=== PATIENT | male | born 1970 | race Caucasian/White ===

== ENCOUNTER 2017-12-11 19:51 | Emergency (ER) | payer OTHER, SELFPAY ==
[2017-12-11 19:52] VITALS: BP 118/70; PULSE 70; RESP 14; TEMP 36.1; O2SAT 100; BMI 46.0
--- NOTE | 2017-12-11 21:00 | RAD_ITS ---
STUDY: X-RAY - LEFT KNEE REASON FOR EXAM: Male, 47 years old. Pain. TECHNIQUE: 4 view(s) of the knee. COMPARISON: None. FINDINGS: Normal visualized distal femur. Normal visualized proximal tibia and fibula. Normal proximal tibiofibular articulation. There is no demonstrated fracture. Normal medial femorotibial compartment. Normal lateral femorotibial compartment. Possible mild subluxation of the patella laterally, with osteophytes along the lateral edge of the patella. Mild patellofemoral degenerative changes. No evidence for effusions. The soft tissue structures are unremarkable. RAD/Knee 4 or More Views IMPRESSION: No acute fracture or dislocation. Possible mild subluxation of the patella laterally, with osteophytes along the lateral edge of the patella. Mild patellofemoral degenerative changes. Electronically Signed: Hernando Mascorro MD at 21:29 EDT , Service support ,
--- NOTE | 2017-12-11 21:45 | ED.VISSUMM ---
- ER Visit Summary Date of Service: 12/11/17 Chief Complaint: Knee pain History of Present Illness: The patient is a 47 M who presents with left knee pain. It is been present for about a week. It has been steadily worsening. It is aching in nature. It was worse with walking up steps. It is worse with movement or ambulation. He has been trying Aleve without relief. There is no history of fall or injury. He has had a prior right knee arthroscopy. No history of gout. Physical Examination: Afebrile vitals are unremarkable Moist mucous membranes Heart regular rate and rhythm Lungs are clear Active full range of motion of the left knee I do not appreciate effusion he has no calf tenderness no leg erythema or swelling and he has brisk capillary refill Test Results: Knee x-ray shows mild patellofemoral changes no fracture. Emergency Department Course and Treatment: Patient was advised on supportive care including ice elevation compression and anti-inflammatory use. He was given a home pack of [place] and advised to follow-up with his primary care physician. He was advised if his symptoms continue may need further outpatient workup or orthopedic referral. Treatment Plan: [] Disposition: Discharge Impression: Left knee pain This note was generated with hopscout dictation software. It may contain incorrect words, spelling, and punctuation that were not noted in review of the chart prior to signing ED Disposition - Plan for ED Patient: Chief Complaint: Lower Extremity Injury Referrals: Anna Lange DO [Primary Care Provider] -
--- NOTE | 2017-12-11 21:46 | ED.DEP ---
ED Disposition - Plan for ED Patient: Chief Complaint: Lower Extremity Injury Instructions: ED Knee Pain [facility] Referrals: Anna Lange DO [Primary Care Provider] -
[2017-12-11] MEDS: HYDROcodone Bitartrate/Apap 5/325 Tablet PO (22:01)
[2017-12-11 22:04] VITALS: BP 120/78; PULSE 79; RESP 16; O2SAT 96
== END 2017-12-11 22:04 | disposition home or self-care (01) ==
PROVIDERS: Emergency Provider Emergency Medicine; Family Provider Family Medicine; PCP Family Medicine
DX: M25.562 Pain in left knee (principal); I10 Essential (primary) hypertension; Z72.0 Tobacco use; Z79.82 Long term (current) use of aspirin; Z79.899 Other long term (current) drug therapy
CPT/HCPCS: 73564; 99282

== ENCOUNTER → 2017-12-22 10:35 | Outpatient (CLI) | payer OTHER, SELFPAY ==
--- NOTE | 2017-12-22 10:42 | MRI_ITS ---
STUDY: MRI LEFT KNEE REASON FOR EXAM: Popping and soreness and left knee since 12/11/2017. TECHNIQUE: Standardized fat and water weighted pulse sequences were obtained in all 3 orthogonal planes. COMPARISON: Radiographs 12/11/2017. FINDINGS: There is a complex tear of the posterior horn/posterior body of the medial meniscus (proton-density sagittal images 9-12; proton density coronal images 12-14). Normal hyaline cartilage of the medial femorotibial compartment. There is slight subchondral bone edema of the medial tibial plateau. There is mild periligamentous inflammation of the medial collateral ligament (T2 coronal image 15). Normal distal semimembranosus, gracilis and semitendinosus tendons. Normal lateral meniscus. Normal hyaline cartilage of the lateral femorotibial compartment. Normal lateral femoral condyle and tibial plateau. Normal proximal tibiofibular articulation. Normal lateral collateral (fibular) ligament. Normal popliteus tendon. Normal biceps femoris tendon. Normal anterior cruciate ligament (ACL). Normal posterior cruciate ligament (PCL). There is mild lateral tilt and mild lateral subluxation of the patella (T2 axial image 10). Normal hyaline cartilage of the patellofemoral compartment. Normal medial and lateral patellar retinaculum. Normal visualized quadriceps tendon. Normal patellar tendon. Normal Hoffa's fat pad. There is a small joint effusion. There is mild edema in the anterior subcutis adipose space. The otherwise visualized osseous structures are unremarkable. MRI/Lower Ext Joint Only (Routine) IMPRESSION: Medial meniscal tear. Mild periligamentous inflammation of the medial collateral ligament. Mild lateral tilt and mild lateral subluxation of the patella. Small joint effusion. Electronically Signed: Koby Reynolds MD at 12:43 EDT Tel , Service support ,
== END ==
PROVIDERS: Family Provider Family Medicine; PCP Family Medicine; Visit Provider Family Medicine
DX: M25.562 Pain in left knee (principal)
CPT/HCPCS: 73721

== ENCOUNTER 2018-01-03 13:14 | Day surgery (SDC) | payer OTHER, SELFPAY ==
--- NOTE | 2017-12-29 16:11 | EKG12_ITS ---
Test Reason : PRE OP Blood Pressure : / mmHG Vent. Rate : 064 BPM Atrial Rate : 064 BPM P-R Int : 142 ms QRS Dur : 086 ms QT Int : 396 ms P-R-T Axes : -49 012 018 degrees QTc Int : 408 ms Sinus vs. ectopic atrial bradycardia Low voltage QRS Abnormal ECG Confirmed by MERT WONG, DAYANARA ([id number]), news videotape editor XENIA ANTONIO ([id number]) on 12/30/2017 2:57:13 PM Referred By: Kennedy Garrett Confirmed By:DAYANARA PAINTING MD
[2017-12-29 17:26] LABS: Hematocrit 48.6 % (40-54); Hemoglobin 16.2 g/dl (13.0-16.5); Mean Corp Hgb Conc 33.3 g/gl (32-36); Mean Corpuscular Hgb 32.3 pg (27.0-32.0); Mean Corpuscular Volume 96.8 fL (80-94); Mean Platelet Vol. 10.7 fl (6.2-12.0); Platelet Count 184 K/mm3 (150-450); RBC Distribution Width CV 12.8 % (11.6-14.6); RBC Distribution Width SD 44.9 fl (35.1-43.9); Red Blood Count 5.02 M/mm3 (4.6-6.2); White Blood Count 9.8 K/mm3 (4.4-11.0)
[2017-12-29 17:27] LABS: Scan Indicated on CBC? Y/N NO
[2017-12-29 17:45] LABS: Anion Gap 9 (5-15); BUN 21 mg/dL (7-18); BUN/Creat Ratio 23.9 RATIO (10-20); Calcium,Total 8.9 mg/dL (8.5-10.1); Chloride 101 mmol/L (98-107); Creatinine, Serum 0.88 mg/dL (0.70-1.30); EST Glomerular Filtration Rate 99 mL/min (>60); Est Glom Filt Rate - Afr Amer 120 mL/min (>60); Glucose 87 mg/dL (74-106); Sodium Level 137 mmol/L (136-145)
[2018-01-03 13:33] VITALS: BP 144/92; PULSE 86; RESP 16; TEMP 36.9; O2SAT 100; BMI 49.6
[2018-01-03] MEDS: Bupivacaine Mpf 0.5% 30 ML VIAL (16:30)
[2018-01-03 17:13] VITALS: BP 144/92; BP 160/97; PULSE 87; RESP 18; TEMP 36.5; O2SAT 94
[2018-01-03 17:30] VITALS: BP 142/69; BP 144/92; PULSE 70; RESP 18; O2SAT 99
[2018-01-03 17:45] VITALS: BP 128/83; BP 144/92; PULSE 67; RESP 18; O2SAT 98
[2018-01-03 18:00] VITALS: BP 138/82; BP 144/92; PULSE 73; RESP 18; TEMP 36.7; O2SAT 98
[2018-01-03 18:35] VITALS: BP 144/92
== END 2018-01-03 19:00 | disposition home or self-care (01) ==
LOC: SDC 13:14 → AC 13:15
PROVIDERS: Family Provider Family Medicine; PCP Family Medicine; Visit Provider Orthopaedic Surgery
PROC: (CPT 29870; principal; 2018-01-03 14:45)
DX: S83.242A Other tear of medial meniscus, current injury, left knee, initial encounter (principal); I10 Essential (primary) hypertension; G47.33 Obstructive sleep apnea (adult) (pediatric); F17.210 Nicotine dependence, cigarettes, uncomplicated; E66.01 Morbid (severe) obesity due to excess calories; Z68.43 Body mass index [BMI] 50.0-59.9, adult; Z87.442 Personal history of urinary calculi; Z86.72 Personal history of thrombophlebitis; Z86.718 Personal history of other venous thrombosis and embolism; Z86.711 Personal history of pulmonary embolism; Z86.2 Personal history of diseases of the blood and blood-forming organs and certain disorders involving the immune mechanism; Z79.82 Long term (current) use of aspirin; Z79.891 Long term (current) use of opiate analgesic; Z79.899 Other long term (current) drug therapy; X58.XXXA Exposure to other specified factors, initial encounter; Y93.01 Activity, walking, marching and hiking; Y92.008 Other place in unspecified non-institutional (private) residence as the place of occurrence of the external cause; Y99.8 Other external cause status
CPT/HCPCS: 29881; 36415; 80048; 85027; 93005; J7120

== ENCOUNTER → 2018-05-22 11:06 | Outpatient (CLI) | payer OTHER, SELFPAY ==
--- NOTE | 2018-05-22 11:08 | RAD_ITS ---
STUDY: X-RAY - LEFT FOOT CLINICAL: Male, 47 years old. Pain and unable to bear weight. TECHNIQUE: 3 view(s) of the foot. COMPARISON: None. FINDINGS: There is an enthesophyte involving the posterior superior calcaneus at the site of insertion of the Achilles tendon. Normal visualized subtalar, talonavicular, calcaneocuboid, tarsal and tarsometatarsal articulations. Nondisplaced transverse fracture at the base of the fifth metatarsal. Normal metatarsophalangeal joint of the great toe. Normal tibial and fibular sesamoid bones. Normal interphalangeal joint of the great toe. Normal phalanges of the great toe. Normal second through fifth metatarsophalangeal joints. Normal interphalangeal joints and phalanges of the lesser toes. Soft tissue swelling. RAD/Foot min 3 Views IMPRESSION: Nondisplaced transverse fracture at the base of the fifth metatarsal with overlying soft tissue swelling. Electronically Signed: Chaka Donovan MD at 11:36 EDT Tel [phone], Service support ,
== END ==
PROVIDERS: Family Provider Family Medicine; PCP Family Medicine; Visit Provider Physician Assistant Surgical
DX: S90.32XA Contusion of left foot, initial encounter (principal)
CPT/HCPCS: 73630

== ENCOUNTER → 2018-05-26 11:41 | Outpatient (CLI) | payer OTHER, SELFPAY ==
[2018-05-26 14:17] LABS: Vitamin D,25 Hydroxy 24.9 ng/mL (29.95-100.01)
== END ==
PROVIDERS: Family Provider Family Medicine; PCP Family Medicine; Referring Provider Podiatrist; Visit Provider Podiatrist
DX: S92.355A Nondisplaced fracture of fifth metatarsal bone, left foot, initial encounter for closed fracture (principal); E55.9 Vitamin D deficiency, unspecified
CPT/HCPCS: 36415; 82306

== ENCOUNTER → 2018-12-05 | Outpatient (CLI) | payer OTHER, SELFPAY ==
[2018-10-23 13:54] VITALS: BMI 51.5
[2018-12-05 14:13] LABS: Hematocrit 50.5 % (40-54); Hemoglobin 17.4 g/dl (13.0-16.5); Mean Corp Hgb Conc 34.5 g/gl (32-36); Mean Corpuscular Hgb 32.6 pg (27.0-32.0); Mean Corpuscular Volume 94.6 fL (80-94); Mean Platelet Vol. 10.4 fl (6.2-12.0); Platelet Count 173 K/mm3 (150-450); RBC Distribution Width CV 12.5 % (11.6-14.6); RBC Distribution Width SD 42.4 fl (35.1-43.9); Red Blood Count 5.34 M/mm3 (4.6-6.2); White Blood Count 7.6 K/mm3 (4.4-11.0)
[2018-12-05 14:16] LABS: Scan Indicated on CBC? Y/N NO
[2018-12-05 14:28] LABS: AST(SGOT) 28 U/L (15-37); Alanine Aminotransfer ALT/SGPT 37 U/L (16-61)
== END | disposition home or self-care (01) ==
LOC: MTLAB 13:18
PROVIDERS: Family Provider Family Medicine; PCP Family Medicine; Referring Provider Podiatrist; Visit Provider Podiatrist
DX: B35.1 Tinea unguium (principal)
CPT/HCPCS: 36415; 84450; 84460; 85027

== ENCOUNTER → 2018-12-21 | Outpatient (CLI) | payer OTHER, SELFPAY ==
[2018-10-23 13:54] VITALS: BMI 51.5
--- NOTE | 2018-12-21 15:44 | VDLE_ITS ---
Reason For Study: pain RIGHT LEFT CFV is compressible, spontaneous, phasic, GSV is normal. competent and demonstrates normal CFV is compressible, spontaneous, phasic, augmentation. competent, and demonstrates normal Procedure augmentation. Exam performed in department. FV is compressible, spontaneous, phasic, The exam was diagnostic. competent and demonstrates normal A preliminary report was called and/or faxed augmentation. to Dr. Barbosa. POP V is compressible, spontaneous, phasic, competent and demonstrates normal augmentation. T/P Trunk is compressible. PTV is compressible. LT PerV is compressible. Interpretation Summary Deep veins of the left lower extremity are patent and compressible segmentally. There is no evidence of left lower extremity deep vein thrombosis. Valvular competence appears intact within the proximal deep venous system on the left . The left greater saphenous vein appears patent and compressible segmentally. Ordering Physician: Francia Barbosa Performed By: Arie Canela RVT
--- NOTE | 2018-12-21 16:25 | RAD_ITS ---
STUDY: X-RAY - LEFT TIBIA AND FIBULA REASON FOR EXAM: Male, 48 years old. Redness and swelling. TECHNIQUE: 2 view(s) of the tibia and fibula were obtained. COMPARISON: None. FINDINGS: Normal visualized tibia. Normal visualized fibula. There is no demonstrated destructive osseous lesion. There is non-specific soft tissue swelling. RAD/Tibia & Fibula 2 Views IMPRESSION: Normal x-ray examination of the tibia and fibula. Electronically Signed: Hernando Mascorro MD at 23:59 EDT , Service support ,
[2018-12-21 16:58] LABS: Absolute Lymphocyte Count 1.48 X10^3/ul (0.83-4.51); Absolute Neutrophil Count 6.7 X10^3/uL (2.0-7.7); Basophil# 0.02 X10^3/uL; Basophil% 0.2 % (0-1); Eosinophil# 0.09 X10^3/uL; Eosinophils% 0.9 % (0-5); Hematocrit 47.8 % (40-54); Hemoglobin 16.3 g/dl (13.0-16.5); Lymphocyte # 1.48 X10^3/ul (4.0); Lymphocyte % 15.5 % (19-41); Mean Corp Hgb Conc 34.1 g/gl (32-36); Mean Corpuscular Hgb 33.3 pg (27.0-32.0); Mean Corpuscular Volume 97.8 fL (80-94); Mean Platelet Vol. 11.2 fl (6.2-12.0); Monocyte# 1.22 X10^3/uL; Monocyte% 12.8 % (0-10); Neutrophil # 6.69 X10^3/uL (2.7-7.7); Neutrophil % 70.3 % (47-70); Platelet Count 168 K/mm3 (150-450); RBC Distribution Width CV 12.9 % (11.6-14.6); RBC Distribution Width SD 46.1 fl (35.1-43.9); Red Blood Count 4.89 M/mm3 (4.6-6.2); White Blood Count 9.5 K/mm3 (4.4-11.0)
[2018-12-21 16:59] LABS: POSITIVE COUNT NO; POSITIVE DIFFERENTIAL NO; POSITIVE MORPHOLOGY NO
[2018-12-21 19:21] LABS: M R Staph aureus DNA By PCR Negative (Negative); Probe Check PASS; Specimen Processing Control PASS; Staph aureus DNA By PCR NEGATIVE (Negative)
== END | disposition home or self-care (01) ==
PROVIDERS: Family Provider Family Medicine; PCP Family Medicine; Referring Provider Podiatrist; Visit Provider Podiatrist
DX: M79.605 Pain in left leg (principal); I82.409 Acute embolism and thrombosis of unspecified deep veins of unspecified lower extremity; L97.822 Non-pressure chronic ulcer of other part of left lower leg with fat layer exposed; L03.90 Cellulitis, unspecified
CPT/HCPCS: 36415; 73590; 85025; 87070; 87075; 87077; 87186; 87205; 87640; 93971

== ENCOUNTER 2018-12-24 14:42 | Observation (INO) | payer OTHER, SELFPAY ==
[2018-10-23 13:54] VITALS: BMI 51.5
[2018-12-24] VITALS (9 sets, daily range): BP systolic 128–164; BP diastolic 79–100; PULSE 74–110; RESP 16–18; TEMP 36.6–37.6; O2SAT 95–100; BMI 52.6; BMI 52.3; BMI 52.4
--- NOTE | 2018-12-24 15:06 | ED.VIS.GEN ---
History of Present Illness Chief Complaint: Cellulitis Detail of Chief Complaint: Discoloration left lower extremity Informant: Patient Onset: Weeks Context: Sudden Onset Timing: Continuous Quality: Discoloration lower extremities Location: below knee bilaterally Current Severity: Moderate Maximum Severity: Moderate Worsened by: Nothing Relieved by: nothing Associated Symptoms: Paresthesia secondary to neuropathy and reason for biopsy Narrative: Patient is a 48-year-old male sent to [facility] by Dr. samm Sparks. Concern for cellulitis that failed outpatient therapy. He denies fever, chills night sweats. He denies symptoms of claudication. He denies weakness in his right or lower extremity. He states he had a venous duplex study performed that was negative. Report is not available. Did speak with Dr. Swartz on. She states pulmonary port was negative. He denies ocular, visual auditory symptoms. He denies cardiac or respiratory symptoms. He denies GI or symptoms. Prior similar symptoms: Yes Recent Illness/Hospitalization: No - Past Medical History (1) Hypertrophic non-obstructive cardiomyopathy Status: Acute (2) Paroxysmal SVT (supraventricular tachycardia) Status: Acute (3) Cardiac dysrhythmia Status: Chronic (4) Essential hypertension Status: Chronic (5) Obstructive sleep apnea Status: Chronic (6) Premature ventricular contractions Status: Chronic Past Medical History - Allergies and Home Meds Allergies/Adverse Reactions: Allergies No Known Allergies Allergy (Verified 12/24/18 14:54) Primary Care Physician: Anna Lange DO [Primary Care Provider] - Prior records reviewed: Yes - Venous duplex study not available. Verbal report from courtesy bus driver Surgical History: - - Arthroscopic surgery for left knee. Lives: Spouse/ Significant Other Smoking Status: Current every day smoker Alcohol: None Drugs: None Review of Systems General: Denies: Chills, Fever, Sweats Eyes: Denies: Visual changes - bilaterally, Diplopia ENT: Denies: Rhinorrhea, Sore throat Cardiovascular: Denies: Chest pain, Palpitations Respiratory: Denies: Dyspnea, Cough, Dyspnea on exertion Gastrointestinal: Denies: Abdominal pain, Nausea, Vomiting, Diarrhea, Melena, Hematochezia Genitourinary: Denies: Dysuria, Hematuria, Frequency Musculoskeletal: Denies: Myalgias, Arthralgias, Neck pain, Back pain, Swelling, Extremity Pain, -, - Neurological: Reports: Parasthesia. Denies: Headache, Weakness, Numbness, -, - Hematologic: Denies: Easy bruising, Easy bleeding, Lymphadenopathy, -, - Allergy: Denies: Uticaria, Swelling of the mouth, Swelling of the tongue, -, - Physical Exam Vital Signs/Narrative: Vital Signs Temp Pulse Resp BP Pulse Ox 12/24/18 14:48 98 F 100 18 164/100 H 99 12/24/18 14:43 98.0 F 110 H 18 164/100 H Inital Vital Signs reviewed: Yes General: Well nourished, Well developed, Obese, No Acute Distress Head: Normocephalic, Atraumatic Eyes: Perrl, EOMI. Negative for: Pale conjunctiva, Scleral icterus, - ENT: Moist mucous membranes, No rhinorrhea Neck: Supple, Nontender, No lymphadenopathy, No JVD Cardiovascular: Regular rate, Regular rhythm, No murmurs, Normal S1, Normal S2 Respiratory: No distress, CTA bilaterally, Chest nontender Abdomen: Soft, Nontender, Nondistended, Normal bowel sounds, No masses Back: Nontender, Normal Inspection Extremities: Nontender, Edema, - - Left lower extremity is larger than right. Pitting edema bilaterally 2+. Delayed capillary refill bilaterally. DP and PT pulses are not palpable. Biphasic flow right PT possibly triphasic flow left PT. No flow right or left DP. Skin: Rash - Discoloration of both right and left lower extremity. Deeper purpleish erythematous color to the left lower extremity with mottling above the knee bilaterally. Neurological: Alert, Oriented x3, Cranial nerves II-XII grossly intact, Normal Strength, Normal Sensation, Normal DTR, Normal Gait Psychological: Normal affect, Normal Mood Diagnostic/Tx/Re-eval Laboratory Results 12/24/18 12/24/18 12/24/18 15:06 15:06 15:06 WBC 6.8 RBC 5.14 Hgb 16.8 H Hct 49.2 MCV 95.7 H MCH 32.7 H MCHC 34.1 RDW 12.7 RDW Differential 43.5 Plt Count 182 MPV 10.3 Immature Gran % (Auto) 0.400 Neut % (Auto) 71.7 H Lymph % (Auto) 18.2 L [place] % (Auto) 8.4 Eos % (Auto) 1.2 Baso % (Auto) 0.1 Absolute Neuts (auto) 4.9 Absolute Lymphs (auto) 1.24 Total Counted Not Reportable Sodium 141 Potassium 4.2 Chloride 108 H Carbon Dioxide 28.0 Anion Gap 5 BUN 11 Creatinine 0.84 Estim Creat Clear Calc 119.33 Est GFR (MDRD) Af Amer 125 Est GFR (MDRD) Non-Af 103 BUN/Creatinine Ratio 13.0 Glucose 188 H Lactic Acid 2.7 H Calcium 9.0 - Medical Decision Making 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 Patient states his leg is no different than when he had venous duplex study that was interpreted as negative. Did speak with Dr. Holder regarding patient. Raise concern regarding arterial insufficiency. Since he has no pain no motor deficit and does have flow if blood work/work-up is unremarkable he will need an outpatient arterial study. Dr. Holder requested update prior to patient's disposition. Laboratory results reviewed and remarkable for an elevated blood sugar 188 and lactate of 2.7. PT/INR PTT were ordered. Patient was anticoagulant with heparin. Spoke with hospitalist who will admit and have repeat venous duplex study in the morning and arterial study. ED Disposition - Plan for ED Patient: Disposition: Acute Care Hospital [facility] Diagnosis: Phlegmasia cerulea dolens, Lactic acidosis, Hyperglycemia Referrals: Anna Lange DO [Primary Care Provider] -
[2018-12-24 15:16] LABS: Absolute Lymphocyte Count 1.24 X10^3/ul (0.83-4.51); Absolute Neutrophil Count 4.9 X10^3/uL (2.0-7.7); Basophil# 0.01 X10^3/uL; Basophil% 0.1 % (0-1); Eosinophil# 0.08 X10^3/uL; Eosinophils% 1.2 % (0-5); Hematocrit 49.2 % (40-54); Hemoglobin 16.8 g/dl (13.0-16.5); Lymphocyte # 1.24 X10^3/ul (4.0); Lymphocyte % 18.2 % (19-41); Mean Corp Hgb Conc 34.1 g/gl (32-36); Mean Corpuscular Hgb 32.7 pg (27.0-32.0); Mean Corpuscular Volume 95.7 fL (80-94); Mean Platelet Vol. 10.3 fl (6.2-12.0); Monocyte# 0.57 X10^3/uL; Monocyte% 8.4 % (0-10); Neutrophil # 4.88 X10^3/uL (2.7-7.7); Neutrophil % 71.7 % (47-70); Platelet Count 182 K/mm3 (150-450); RBC Distribution Width CV 12.7 % (11.6-14.6); RBC Distribution Width SD 43.5 fl (35.1-43.9); Red Blood Count 5.14 M/mm3 (4.6-6.2); White Blood Count 6.8 K/mm3 (4.4-11.0)
[2018-12-24 15:22] LABS: POSITIVE COUNT NO; POSITIVE DIFFERENTIAL NO; POSITIVE MORPHOLOGY NO
[2018-12-24 15:35] LABS: Anion Gap 5 (5-15); BUN 11 mg/dL (7-18); Chloride 108 mmol/L (98-107); Creatinine, Serum 0.84 mg/dL (0.70-1.30); EST Glomerular Filtration Rate 103 mL/min (>60); Est Glom Filt Rate - Afr Amer 125 mL/min (>60); Estimated Creatinine Clearance 119.33 ml/min; Glucose 188 mg/dL (74-106); Potassium 4.2 mmol/L (3.5-5.1); Sodium Level 141 mmol/L (136-145)
--- NOTE | 2018-12-24 15:43 | ED.RN ---
dr little notified of lactic acid results
[2018-12-24 15:51] LABS: Lactic Acid 2.7 mmol/L (0.4-2.0)
--- NOTE | 2018-12-24 16:15 | PCM.HP.STD ---
Problem List (1) Left leg pain Status: Acute (2) Morbid obesity Status: Chronic (3) Hyperglycemia Status: Acute (4) Lactic acidosis Status: Acute (5) Hypertrophic non-obstructive cardiomyopathy Status: Chronic (6) Essential hypertension Status: Chronic (7) Paroxysmal SVT (supraventricular tachycardia) Status: Chronic (8) Obstructive sleep apnea Status: Chronic (9) Nicotine abuse Status: Chronic (10) Alcohol abuse Status: Chronic History of Present Illness Date of Admission: 12/24/18 Chief Complaint: LLE pain, edema. The patient is a 48 y/o M w/ PMHx: HTN, HLD, Morbid Obesity, Hx DVT, DEMETRIUS not using CPAP q HS, Hx PSVT, Cardiomyopathy unclear type, Anxiety and Depression, Hx prior LLE DVT unclear if provoked with ongoing evaluation w/ Podiatry, initially for 04/2018 5th metatarsal fracture but noted BL LE neuropathy, decreased peripheral palpable pulses with now 3 week history of ongoing LLE increased edema, discomfort especially with usage, redness recently treated with oral abx therapy without change, s/p bx per Podiatry, referred to the ED for further evaluation. He denies any recent travel. He does not recent bx 3 weeks prior but otherwise no recent interventions. He does not mild dyspnea if he performs notable exertion but no associated chest pain, diaphoresis, nausea, emesis. Work-up in the ED included T 99.7 rectal, 98 oral, T 110-->84, BP 164/100-->145/80, RR 18, 99% on RA, CBC w/ WBC 6.8, Hgb 16.8, Plts 182 without marked shift, BMP w/ Chl 108, glucose 188, LA 2.7, DVT US as noted w/ preliminary read unremarkable; however, continued high suspicion for DVT or arterial etiology. Past Medical History Past Medical History (Chronic Problems): Chronic Problems (Last Reviewed 10/23/18 @ 13:58 by Haley Barrett) Morbid obesity (Chronic) Premature atrial contraction (Chronic) Hypertrophic non-obstructive cardiomyopathy (Chronic) Essential hypertension (Chronic) Paroxysmal SVT (supraventricular tachycardia) (Chronic) Obstructive sleep apnea (Chronic) Premature ventricular contractions (Chronic) Abnormal electrocardiogram [ECG] [EKG] (Chronic) Cardiac dysrhythmia (Chronic) Nicotine abuse (Chronic) Alcohol abuse (Chronic) Cardiomyopathy (Chronic) Obesity (Chronic) Medical History: Medical History (Last Reviewed 10/23/18 @ 13:58 by Haley Barrett) Premature atrial contraction (Chronic) I49.1 Hypertrophic non-obstructive cardiomyopathy (Acute) I42.2 Essential hypertension (Chronic) I10 Paroxysmal SVT (supraventricular tachycardia) (Acute) I47.1 Obstructive sleep apnea (Chronic) G47.33 Premature ventricular contractions (Chronic) I49.3 Cardiac dysrhythmia (Chronic) I49.9 Cardiomyopathy (Chronic) I42.9 Anemia D64.9 Chest pain R07.9 Dyspnea R06.00 Fatigue R53.83 Insomnia G47.00 Knee pain M25.569 bleeding lungs History of DVT (deep vein thrombosis) Z86.718 Deep vein thrombosis, lower left extremity (Inactive) I82.402 Allergies No Known Allergies Allergy (Verified 12/24/18 14:54) Home Medications: Ambulatory Orders Medication Instructions Recorded Multivitamin [Daily Multiple 1 ea PO DAILY 05/03/15 Vitamin] lisinopril 10 mg tablet 10 mg PO BID #180 tab 11/16/17 Naproxen Sodium [Aleve] 220 mg PO Q12H PRN PRN 12/11/17 aspirin 81 mg tablet,delayed 81 mg PO DAILY 10/23/18 release carvedilol 12.5 mg tablet 12.5 mg PO BID #180 tab 10/23/18 venlafaxine ER 150 mg 300 mg PO DAILY cap 10/23/18 capsule,extended release 24 hr Amoxicillin/Potassium Clav 1 tab PO BID 12/24/18 [Amox-Clav 875-125 mg Tablet] Ciprofloxacin HCl 1 tab PO BID 12/24/18 Terbinafine HCl 1 tab PO BID 12/24/18 Surgical History: Surgical History (Last Reviewed 10/23/18 @ 13:58 by Haley Barrett) History of arthroscopic knee surgery Z98.890 right knee History of tonsillectomy Z90.89 S/P arthroscopy of left knee Z98.890 renal calculi excision 2002, 2003 Surgical History: - - Arthroscopic surgery BL knee, T+A, renal calculi interventions. Psychiatric History: Anxiety, Depression Lives: Spouse/ Significant Other Smoking Status: Current every day smoker - Currently smoking approximate 1/2 pack/day cigarette tobacco usage. Tobacco Use: Cigarettes Alcohol: Heavy - Heavy, 6-15, 12 ounce light beers daily. Drugs: Marijuana - Occasional. - *Family History Maternal Family History: Family History (Last Reviewed 10/23/18 @ 13:58 by Haley Barrett) Unknown No problems noted. History Items: - - Patient is adopted and does not know his maternal or paternal family history. Paternal Family History: Family History (Last Reviewed 10/23/18 @ 13:58 by Haley Barrett) Unknown No problems noted. History Items: - - Patient is adopted and does not know his maternal or paternal family history. Review of Systems Constitutional: Reports: Fatigue. Denies: Chills, Fever, Weight Change HEENT: Denies: Head Aches, Sinus Congestion, Sinus Drainage Cardiovascular: Reports: Edema. Denies: Chest Pain, Palpitations Respiratory: Reports: Shortness of breath upon exertion. Denies: Cough, Shortness of Breath, Shortness of breath at rest, Sputum production Gastrointestinal: Denies: Abdominal Pain, Nausea, Vomiting Genitourinary: Denies: Dysuria Musculoskeletal: Reports: Leg Pain. Denies: Joint Pain, Joint Tenderness Skin: Reports: Skin Changes. Denies: Rash, Wounds Neurological: Reports: Numbness, Tingling. Denies: Focal weakness Psychiatric: Reports: Anxiety, Depression. Denies: Homicidal Ideations, Suicidal Ideations Hematologic/ Lymphatic: Denies: Easy Bruising, Easy Bleeding VTE Information - Inpt Only VTE Present on Admission: No VTE Mechan Device Prophylaxis: None VTE Pharm Prophylaxis ordered?: Yes Patient Problems: Active and Suspected Problems (Last Reviewed 10/23/18 @ 13:58 by Haley Barrett) Phlegmasia cerulea dolens (Acute) Lactic acidosis (Acute) Hyperglycemia (Acute) Left leg pain (Acute) Subjective: Seated upright in the ED bed, no acute distress, notes discomfort of left lower extremity primarily with palpation attempts. Currently denies any dyspnea and states this is primarily when he is been exerting himself over the last 3 weeks. Objective: Physical Examination: General: awake, alert, oriented x 3 and cooperative, seated upright in bed in no apparent distress. Skin: normal color, turgor, no icterus, cyanosis except bilateral lower extremity toenail fungal appearance as well as mildly mottled distally. HEENT: AT/NC, EOMI, PERRLA, mildly MM, no carotid bruits or JVD noted; however, thickened neck makes examination difficult. Lungs: Distant breath sounds bilaterally, greater bases, moderate effort, occasional rare very soft end expiratory wheeze, resolved after cough. Heart: Regular rate and rhythm; no gallop, rub audible. Abdomen: soft, morbidly obese, NTTP, ND, normal BS, unable to discern HSM secondary to morbidly obese habitus. Extremities: no cyanosis, clubbing except noted in skin. Neurological: patient awake, alert, oriented x 3; cognitive function intact; pupils equally reactive to light and accomodation; cranial nerves II-XII grossly normal, moving all 4 extremities, no focal deficits, strength moderately globally decreased secondary to acute presentation. Psychiatric: affect appears normal, no acute evidence of depressive or anxiety feelings. - Physical Exam Vital Signs Temp Pulse Resp BP Pulse Ox 99.7 F H 84 18 145/80 H 99 12/24/18 16:13 12/24/18 16:00 12/24/18 16:00 12/24/18 16:00 12/24/18 16:00 Weight: 387 lb 12.69 oz Body Mass Index (BMI) 52.6 Laboratory Tests Past 24 Hrs 12/24/18 12/24/18 12/24/18 15:06 15:06 15:06 WBC 6.8 RBC 5.14 Hgb 16.8 H Hct 49.2 MCV 95.7 H MCH 32.7 H MCHC 34.1 RDW 12.7 RDW Differential 43.5 Plt Count 182 MPV 10.3 Immature Gran % (Auto) 0.400 Neut % (Auto) 71.7 H Lymph % (Auto) 18.2 L [place] % (Auto) 8.4 Eos % (Auto) 1.2 Baso % (Auto) 0.1 Absolute Neuts (auto) 4.9 Absolute Lymphs (auto) 1.24 Total Counted Not Reportable Sodium 141 Potassium 4.2 Chloride 108 H Carbon Dioxide 28.0 Anion Gap 5 BUN 11 Creatinine 0.84 Estim Creat Clear Calc 119.33 Est GFR (MDRD) Af Amer 125 Est GFR (MDRD) Non-Af 103 BUN/Creatinine Ratio 13.0 Glucose 188 H Lactic Acid 2.7 H Calcium 9.0 Assessment/Plan All Active Problems (Last Reviewed 10/23/18 @ 13:58 by Haley Barrett) Phlegmasia cerulea dolens (Acute) Lactic acidosis (Acute) Hyperglycemia (Acute) Left leg pain (Acute) Contusion of left foot, initial encounter (Resolved) Fracture of fifth metatarsal bone of left foot (Resolved) The patient is a 48 y/o M w/ PMHx: HTN, HLD, Morbid Obesity, Hx DVT, DEMETRIUS not using CPAP q HS, Hx PSVT, Cardiomyopathy unclear type, Anxiety and Depression, Hx prior LLE DVT unclear if provoked with ongoing evaluation w/ Podiatry, initially for 04/2018 5th metatarsal fracture but noted BL LE neuropathy, decreased peripheral palpable pulses with now 3 week history of ongoing LLE increased edema, discomfort especially with usage, redness recently treated with oral abx therapy without change, s/p bx per Podiatry, referred to the ED for further evaluation. (1) LLE Pain, Edema, Decreased Distal Palpable Pulses w/ mildly Elevated LA and associated Dyspnea: Ongoing outpatient evaluation, outpatient DVT US preliminary unremarkable, concern for possibly more elevated DVT versus arterial etiology, mottled appearance, cool which is chronic, dopplerable PT BL, notably TTP. To be cautious, will admit to [facility] tele, maintain on heparin drip w/ bolus administered in the ED, will obtain CTA w/ run-off and attempt CTPA if able to at the same time, otherwise would defer CTPA, if unremarkable, plan repeat 12/25/18 DVT US with possible Vascular consultation if appropriate pending also CTA results, PRN pain regimen. Hydrating, repeat LA. Add statin, FLP in AM. ASA. EKG requested. (2) Hyperglycemia: Admission glucose 188, HgA1c pending. (3) Cardiomyopathy, Unclear type: Continue home regimen asa, coreg, lisinopril, not on statin therapy, added as noted. (4) Hypertension: Continue home regimen including lisinopril, coreg, PRN hydralazine. (5) Hyperlipidemia: Not on agent, add high dose statin pending as noted evaluation #1, FLP in AM. (6) Morbid Obesity: Weight loss and lifestyle changes encouraged, nutrition consulted. (7) Tobacco Abuse: Encouraged cessation, inpatient consultation per RT, NR deferred per patient. (8) Anxiety and Depression: Continue home regimen velafaxine. (9) DEMETRIUS: Not using CPAP at home, notes secondary to fit with air flowing into his upper face, amenable to trying here. (10) EtOH Abuse: Patient notes routine consumption of 6-15, 12 ounce light beers per day. Will maintain on CIWA protocol, MVI, thiamine and folic acid. Mag and phos pending. Notes he has gone several days without beers prior and never had withdrawal symptoms. (11) Hx Prior LLE DVT: Unclear if provoked, patient cannot recall, as noted continue treatment as per #1. (12) DVT Prophylaxis: Heparin bolus with drip initiation in the ED, continue, preliminary read DVT US negative; however, high suspicion. Code Visit OBSV E&M: 10289 Initial observation care L3
--- NOTE | 2018-12-24 16:36 | NURSING ---
Report obtained. Sent Message Via [facility] that pt can come to the floor.
[2018-12-24] MEDS: HEPARIN/D5w 25,000 UNITS 25,000 UNITS/250 ML IV.SOLN. 21 UNITS IV (16:37)
[2018-12-24] MEDS: Heparin Injection (Vial) 5,000 UNIT/ML VIAL 14000 UNIT IV (16:38)
[2018-12-24 16:44] LABS: International Normalized Ratio 1.1; Prothrombin Time (Protime)PT. 13.5 SECONDS (11.7-14.9)
[2018-12-24 16:45] LABS: Partial Thromboplast Time 29.5 Seconds (24.1-36.2)
--- NOTE | 2018-12-24 16:55 | CT_ITS ---
STUDY: CTA CHEST REASON FOR EXAM: Male, 48 years old. Left leg swelling and edema RADIATION DOSAGE (If Supplied By Facility): CTDIvol = ( 18.74 ) mGy, DLP = ( 3212.57 ) mGycm TECHNIQUE: The examination was performed with the intravenous administration of 100 IV Isovue 370. Post-processing of the angiographic images was performed, with multiplanar reformation and 3D reconstruction. Individualized dose optimization techniques were used for this CT. COMPARISON: 08/15/2014 FINDINGS: Normal enhancement of the main pulmonary artery and right and left pulmonary arteries. Normal enhancement of the bilateral peripheral pulmonary arteries. There is no demonstrated pulmonary embolism. Aberrant right subclavian artery. There is no demonstrated aortic dissection. Normal heart and pericardium. Normal mediastinum. Normal hilar regions. Normal visualized trachea and bronchi. The lungs are well expanded. Normal pulmonary parenchyma. Normal pleura. Normal chest wall structures. There are degenerative changes of thoracic spine. Normal visualized upper abdomen. CT/CTA Chest W/WO Contrast IMPRESSION: No pulmonary embolus. No acute pulmonary findings. Aberrant right subclavian artery. Electronically Signed: Terrell Nunez MD at 18:33 EDT Tel , Service support ,
--- NOTE | 2018-12-24 16:55 | VDLE_ITS ---
Reason For Study: Pain Procedure LEFT Exam performed portable in patient room. GSV is normal. A preliminary report was called and/or faxed CFV is compressible, spontaneous, phasic, to MS3. competent, and demonstrates normal augmentation. FV is compressible, spontaneous, phasic, competent and demonstrates normal augmentation. POP V is compressible, spontaneous, phasic, competent and demonstrates normal augmentation. T/P Trunk is compressible. PTV is compressible. LT PerV is compressible. Interpretation Summary There is no evidence of left lower extremity deep vein thrombosis. Left greater saphenous vein appears patent and compressible segmentally. Ordering Physician: Vy Hester Referring Physician: Anna Lange Performed By: Glenda Quiroz RVT
--- NOTE | 2018-12-24 16:55 | CT_ITS ---
STUDY: CTA OF THE ABDOMINAL AORTA AND BILATERAL LOWER EXTREMITIES REASON FOR EXAM: Male, 48 years old. Left leg swelling and edema RADIATION DOSAGE (If Supplied By Facility): CTDIvol = ( 18.74 ) mGy, DLP = ( 3212.57 ) mGycm TECHNIQUE: Axial CT angiography multi-detector data acquisition was obtained from the lower chest to the feet following intravenous administration of 100 IV Isovue 370. Axial images and MIP images were reconstructed from the axial data set. Post-processing of the angiographic images was performed, with multiplanar reformation and 3D reconstruction. Individualized dose optimization techniques were used for this CT. TECHNICAL QUALITY: Good COMPARISON: None. Descriptors of Narrowing: None (0%) Mild (< 50%) Moderate (50-70%) Severe (70-90%) Subtotal/Total Occlusion (90-100%) Non-Evaluable (technically non-diagnostic FINDINGS: Scattered calcified arterial plaques are noted. Otherwise: Abdominal aorta: No demonstrated narrowing. Celiac and superior mesenteric arteries: No demonstrated narrowing. Inferior mesenteric artery: No demonstrated narrowing. Right renal artery(arteries): No demonstrated narrowing. Left renal artery(arteries): No demonstrated narrowing. Right common iliac artery: No demonstrated narrowing. Right external iliac artery: No demonstrated narrowing. Right internal iliac artery: No demonstrated narrowing. Left common iliac artery: No demonstrated narrowing. Left external iliac artery: No demonstrated narrowing. Left internal iliac artery: No demonstrated narrowing. RIGHT LOWER EXTREMITY Right common femoral artery: No demonstrated narrowing. Right profundus femoris: No demonstrated narrowing. Right superficial femoral: No demonstrated narrowing. Right popliteal artery: No demonstrated narrowing. Right tibioperoneal trunk: No demonstrated narrowing. Right anterior tibial artery: No demonstrated narrowing. Right posterior tibial artery: No demonstrated narrowing. Right peroneal artery: No demonstrated narrowing. LEFT LOWER EXTREMITY Left common femoral artery: No demonstrated narrowing. Left profundus femoris: No demonstrated narrowing. Left superficial femoral: No demonstrated narrowing. Left popliteal artery: No demonstrated narrowing. Left tibioperoneal trunk: No demonstrated narrowing. Left anterior tibial artery: No demonstrated narrowing. Left posterior tibial artery: No demonstrated narrowing. Left peroneal artery: No demonstrated narrowing. 59 x 38 mm Feng's cyst on the right. CT/CTA Abd w/Runoff W/WO Contrast IMPRESSION: No evidence of significant arterial pathology in the abdomen, pelvis, or lower extremities. Electronically Signed: Terrell Nunez MD at 18:38 EDT Tel , Service support ,
--- NOTE | 2018-12-24 16:55 | EKG12_ITS ---
Test Reason : Blood Pressure : / mmHG Vent. Rate : 080 BPM Atrial Rate : 080 BPM P-R Int : 188 ms QRS Dur : 078 ms QT Int : 372 ms P-R-T Axes : 084 024 041 degrees QTc Int : 429 ms Normal sinus rhythm Low voltage QRS Borderline ECG Confirmed by MERT WONG, DAYANARA ([id number]), copy editor NIVIA BOWSER ([id number]) on 12/26/2018 11:38:05 AM Referred By: Vy Hester Confirmed By:DAYANARA PAINTING MD
--- NOTE | 2018-12-24 17:27 | NURSING ---
pt arrived to floor with Heparin gtt running. According to wt bases protocol, he should be running at 21mg/hr which is correct and what he is running on the IVAC. CBC, PT, INR and PTT were drawn in ED.
[2018-12-24 17:38] LABS: Magnesium 1.7 mg/dL (1.6-2.6); Phosphorus 3.7 mg/dL (2.5-4.9)
[2018-12-24 17:47] LABS: Hemoglobin A1c 5.5 % (4.2-6.3)
[2018-12-24] MEDS: 0.9% Normal Saline 1,000 ML 999 ML IV (18:15)
[2018-12-24] MEDS: 0.9% Normal Saline 1,000 ML 125 ML IV (18:16)
[2018-12-24] MEDS: Folic Acid 1 MG Tablet PO (18:17)
[2018-12-24] MEDS: Thiamine Hydrochloride 100 MG Tablet PO (18:17)
[2018-12-24 19:11] LABS: Reflex Lactate? Y
[2018-12-24 20:44] LABS: Lactic Acid 1.8 mmol/L (0.4-2.0)
[2018-12-24] MEDS: Atorvastatin Calcium 80 MG Tablet PO (22:49)
[2018-12-24] MEDS: Carvedilol 12.5 MG Tablet PO (22:49)
[2018-12-24] MEDS: Lisinopril 10 MG Tablet PO (22:50)
[2018-12-24] MEDS: TERBINAFINE HCL 250 MG TABLET PO (22:56)
[2018-12-25] VITALS (7 sets, daily range): BP systolic 128–147; BP diastolic 87–106; PULSE 62–85; RESP 16–18; TEMP 36.4–36.8; O2SAT 98–100
[2018-12-25] MEDS: 0.9% Normal Saline 1,000 ML 125 ML IV (03:10)
[2018-12-25 04:45] LABS: Absolute Lymphocyte Count 1.75 X10^3/ul (0.83-4.51); Absolute Neutrophil Count 3.6 X10^3/uL (2.0-7.7); Basophil# 0.02 X10^3/uL; Basophil% 0.3 % (0-1); Eosinophils% 1.6 % (0-5); Hemoglobin 15.2 g/dl (13.0-16.5); Lymphocyte # 1.75 X10^3/ul (4.0); Lymphocyte % 27.6 % (19-41); Mean Corpuscular Hgb 32.2 pg (27.0-32.0); Mean Corpuscular Volume 97.5 fL (80-94); Mean Platelet Vol. 10.4 fl (6.2-12.0); Monocyte# 0.82 X10^3/uL; Neutrophil # 3.61 X10^3/uL (2.7-7.7); Platelet Count 152 K/mm3 (150-450); RBC Distribution Width SD 45.6 fl (35.1-43.9); Red Blood Count 4.72 M/mm3 (4.6-6.2); White Blood Count 6.3 K/mm3 (4.4-11.0)
[2018-12-25 04:50] LABS: POSITIVE COUNT NO; POSITIVE DIFFERENTIAL NO; POSITIVE MORPHOLOGY NO
[2018-12-25 04:51] LABS: Partial Thromboplast Time 54.4 Seconds (24.1-36.2)
[2018-12-25 05:16] LABS: Anion Gap 5 (5-15); BUN 12 mg/dL (7-18); BUN/Creat Ratio 18.2 RATIO (10-20); Calcium,Total 8.4 mg/dL (8.5-10.1); Chloride 111 mmol/L (98-107); Cholesterol 130 mg/dL (200); Creatinine, Serum 0.66 mg/dL (0.70-1.30); EST Glomerular Filtration Rate 138 mL/min (>60); Est Glom Filt Rate - Afr Amer 166 mL/min (>60); Estimated Creatinine Clearance 151.87 ml/min; Glucose 104 mg/dL (74-106); High Density Lipoprotein 51 mg/dL; Potassium 3.9 mmol/L (3.5-5.1); Sodium Level 142 mmol/L (136-145); Triglycerides 142 mg/dL; Very Low Density Lipoprotein 28 mg/dL (5-40)
[2018-12-25 05:21] LABS: Lactic Acid 1.7 mmol/L (0.4-2.0)
[2018-12-25] MEDS: HEPARIN/D5w 25,000 UNITS 25,000 UNITS/250 ML IV.SOLN. 21 UNITS IV (05:50)
[2018-12-25] MEDS: Heparin Injection (Vial) 5,000 UNIT/ML VIAL IV (05:50)
[2018-12-25] MEDS: Carvedilol 12.5 MG Tablet PO (09:50)
[2018-12-25] MEDS: Aspirin E.C. 81 MG Tablet PO (09:50)
[2018-12-25] MEDS: Multivitamins,Ther W-Minerals Tablet 1 TABLET PO (09:50)
[2018-12-25] MEDS: Lisinopril 10 MG Tablet PO (09:50)
[2018-12-25] MEDS: Thiamine Hydrochloride 100 MG Tablet PO ×2 (09:50→16:25)
[2018-12-25] MEDS: Folic Acid 1 MG Tablet PO (09:50)
--- NOTE | 2018-12-25 12:44 | CT_ITS ---
STUDY: CT LOWER LEG WITH CONTRAST, LEFT REASON FOR EXAM: Male, 48 years old. Cellulitis, redness and swelling RADIATION DOSAGE (If Supplied By Facility): CTDIvol = ( 15.35 ) mGy, DLP = ( 1098.98 ) mGycm. Individualized dose optimization techniques were used for this CT.? TECHNIQUE: Axial CT images of the left lower leg were obtained after IV administration of 100 mL of Isovue-370 followed by sagittal and coronal reconstructions. COMPARISON: Radiographs 12/21/2018 FINDINGS: Remote deformity of the base of the fifth metatarsal. Subtalar joint osteoarthritis. Mild medial compartment knee osteoarthritis. No CT evidence of osteomyelitis. No evidence of periosteal reaction or osteolysis. No soft tissue abscesses are seen. Vascular calcifications. Diffuse subcutaneous induration compatible with cellulitis. No focal muscular lesions are seen. CT/Extremity Lower WITH Contrast IMPRESSION: Cellulitis without evidence of abscess. No CT evidence of osteomyelitis. If there is further concern for osteomyelitis, consider correlation with three-phase bone scan or contrast-enhanced MRI. Electronically Signed: Terrell Nunez MD at 16:10 EDT Tel , Service support ,
--- NOTE | 2018-12-25 17:06 | DCINST_ITS ---
- Discharge Diagnoses Current Active Problems: Current Active and Chronic Problems (Last Reviewed 10/23/18 @ 13:58 by Haley Barrett) Phlegmasia cerulea dolens (Acute) Lactic acidosis (Acute) Hyperglycemia (Acute) Left leg pain (Acute) Morbid obesity (Chronic) You will use the following diet at home:: No restrictions Your food should be the consistency of: Regular Discharge Activity: Return to Normal Activity Return to work on:: 12/27/18 Keep extremity elevated above heart level: Left Leg Call your doctor if your incision/area has: Increased Pain/ Swelling, Increased Redness Call your doctor if you observe: Fever of 101 or Higher, Inability to urinate, Shortness of breath Allergies/Adverse Reactions: Allergies No Known Allergies Allergy (Verified 12/24/18 17:03) Medications to take at Discharge Multivitamin [Daily Multiple Vitamin] 1 ea PO DAILY 05/03/15 lisinopril 10 mg tablet 10 mg PO BID #180 tab 11/16/17 Naproxen Sodium [Aleve] 220 mg PO Q12H PRN PRN 12/11/17 aspirin 81 mg tablet,delayed release 81 mg PO DAILY 10/23/18 carvedilol 12.5 mg tablet 12.5 mg PO BID #180 tab 10/23/18 venlafaxine ER 150 mg capsule,extended release 24 hr 300 mg PO DAILY cap 10/23/18 Amoxicillin/Potassium Clav [Amox-Clav 875-125 mg Tablet] 1 tab PO BID 12/24/18 Ciprofloxacin HCl 1 tab PO Q12H 12/24/18 Terbinafine HCl 1 tab PO BID 12/24/18 Primary Care Physician: Anna Lange DO [Primary Care Provider] - Within 2 Weeks Test Results: Test results from this visit will be discussed in further detail at your follow- up appointment, if applicable. Please Follow Up With: Francia Barbosa DPM When: 1 week Proposed Discharge Date: 12/25/18
--- NOTE | 2018-12-25 17:06 | PCM.DC.SUM ---
Discharge Date and Diagnosis - Problem List Patient Problems: Active and Suspected Problems (Last Reviewed 10/23/18 @ 13:58 by Haley Barrett) Cellulitis of left lower extremity (Acute) Left leg pain (Acute) Date of Admission: 12/24/18 Date of Discharge: 12/25/18 - Primary Discharge Diagnosis Active and Suspected Problems (Last Reviewed 10/23/18 @ 13:58 by Haley Barrett) Cellulitis of left lower extremity (Acute) Left leg pain (Acute) - Secondary Discharge Diagnosis Chronic Problems (Last Reviewed 10/23/18 @ 13:58 by Haley Barrett) Hyperglycemia (Chronic) Morbid obesity (Chronic) Premature atrial contraction (Chronic) Hypertrophic non-obstructive cardiomyopathy (Chronic) Essential hypertension (Chronic) Paroxysmal SVT (supraventricular tachycardia) (Chronic) Obstructive sleep apnea (Chronic) Premature ventricular contractions (Chronic) Abnormal electrocardiogram [ECG] [EKG] (Chronic) Cardiac dysrhythmia (Chronic) Nicotine abuse (Chronic) Alcohol abuse (Chronic) Cardiomyopathy (Chronic) Obesity (Chronic) Hospital Course and Treatment Imaging Results: 12/25/18 12:44 Extremity Lower WITH Contrast [CT] Urgent Clinical Impression(s) from Imaging Studies Abdomen/Pelvis CTA 12/24/18 16:55 IMPRESSION: No evidence of significant arterial pathology in the abdomen, pelvis, or lower extremities. Electronically Signed: Terrell Nunez MD at 18:38 EDT Tel , Service support , Chest CTA 12/24/18 16:55 IMPRESSION: No pulmonary embolus. No acute pulmonary findings. Aberrant right subclavian artery. Electronically Signed: Terrell Nunez MD at 18:33 EDT Tel , Service support , Lower Extremity CT 12/25/18 12:44 IMPRESSION: Cellulitis without evidence of abscess. No CT evidence of osteomyelitis. If there is further concern for osteomyelitis, consider correlation with three-phase bone scan or contrast-enhanced MRI. Electronically Signed: Terrell Nunez MD at 16:10 EDT Tel , Service support , Operations: None Procedures: None Summary of Care Provided: The patient is a 48 year old M who presents with left lower extremity pain. Patient underwent a work-up here, including a duplex of his lower extremities, CTA of the chest and abdomen all of which were negative. CT scan of his leg showed a cellulitis. 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 His leg wound is been poor to heal but did have a culture performed on the that showed Serratia, Klebsiella and group B streptococcus. Patient was on ciprofloxacin and amoxicillin clavulanic acid. Those antibiotics are efficient and effective for the current bacteria that he has an recommended that he continue with that. Recommend he keep his leg elevated as well. And reassurance provided to he and his mother who is at bedside. Explained that things are getting better or if he does have signs symptoms that things may be getting worse to return to the emergency room. Explained that you have given that the open wound that he has could potentially be another source of resistant organism, such as MRSA, that may not be sensitive to those antibiotics. [] Patient Problems: Active and Suspected Problems (Last Reviewed 10/23/18 @ 13:58 by Haley Barrett) Cellulitis of left lower extremity (Acute) Left leg pain (Acute) - Physical Exam General: Alert, No apparent distress HEENT: Atraumatic, Normocephalic Oral: Moist Mucosa, No Gingival or Mucosal Lesions/ Ulcerations Extremities: No Calf Tenderness, Edema Skin: - - No erythema. Patient does have a distal left lower extremity wound that is clean and intact. Vital Signs Temp Pulse Resp BP Pulse Ox 36.6 C 62 18 136/94 H 100 12/25/18 16:00 12/25/18 16:00 12/25/18 16:00 12/25/18 16:00 12/25/18 16:00 Oxygen Delivery Method Room Air Weight: 175.1 kg Body Mass Index (BMI) 52.3 Intake and Output for Last 24 Hours 12/23/18 12/24/18 12/25/18 23:59 23:59 23:59 Intake Total 1929 1552 / 1552 Balance 1929 1552 / 1552 Laboratory Tests Past 24 Hrs 12/24/18 12/24/18 12/24/18 10:40 15:06 15:06 WBC RBC Hgb Hct MCV MCH MCHC RDW RDW Differential Plt Count MPV Immature Gran % (Auto) Neut % (Auto) Lymph % (Auto) [place] % (Auto) Eos % (Auto) Baso % (Auto) Absolute Neuts (auto) Absolute Lymphs (auto) Total Counted APTT 100.0 H* Sodium Potassium Chloride Carbon Dioxide Anion Gap BUN Creatinine Estim Creat Clear Calc Est GFR (MDRD) Af Amer Est GFR (MDRD) Non-Af BUN/Creatinine Ratio Glucose Hemoglobin A1c 5.5 Lactic Acid Calcium Phosphorus 3.7 Magnesium 1.7 Triglycerides Cholesterol LDL Cholesterol VLDL Cholesterol HDL Cholesterol 12/24/18 12/25/18 12/25/18 20:00 04:28 04:28 WBC 6.3 RBC 4.72 Hgb 15.2 Hct 46.0 MCV 97.5 H MCH 32.2 H MCHC 33.0 RDW 13.0 RDW Differential 45.6 H Plt Count 152 MPV 10.4 Immature Gran % (Auto) 0.500 Neut % (Auto) 57.0 Lymph % (Auto) 27.6 Gulf % (Auto) 13.0 H Eos % (Auto) 1.6 Baso % (Auto) 0.3 Absolute Neuts (auto) 3.6 Absolute Lymphs (auto) 1.75 Total Counted Not Reportable APTT Sodium 142 Potassium 3.9 Chloride 111 H Carbon Dioxide 26.0 Anion Gap 5 BUN 12 Creatinine 0.66 L Estim Creat Clear Calc 151.87 Est GFR (MDRD) Af Amer 166 Est GFR (MDRD) Non-Af 138 BUN/Creatinine Ratio 18.2 Glucose 104 Hemoglobin A1c Lactic Acid 1.8 Calcium 8.4 L Phosphorus Magnesium Triglycerides 142 Cholesterol 130 LDL Cholesterol 51 VLDL Cholesterol 28 HDL Cholesterol 51 12/25/18 12/25/18 04:28 04:28 WBC RBC Hgb Hct MCV MCH MCHC RDW RDW Differential Plt Count MPV Immature Gran % (Auto) Neut % (Auto) Lymph % (Auto) Gulf % (Auto) Eos % (Auto) Baso % (Auto) Absolute Neuts (auto) Absolute Lymphs (auto) Total Counted APTT 54.4 H Sodium Potassium Chloride Carbon Dioxide Anion Gap BUN Creatinine Estim Creat Clear Calc Est GFR (MDRD) Af Amer Est GFR (MDRD) Non-Af BUN/Creatinine Ratio Glucose Hemoglobin A1c Lactic Acid 1.7 Calcium Phosphorus Magnesium Triglycerides Cholesterol LDL Cholesterol VLDL Cholesterol HDL Cholesterol Discharge Diet: Low fat/ Low Cholesterol Discharge Activity: Return to Normal Activity Return to work on:: 12/27/18 Keep extremity elevated above heart level: Left Leg Call your doctor if your incision/area has: Increased Pain/ Swelling, Increased Redness Call your doctor if you observe: Fever of 101 or Higher, Inability to urinate, Shortness of breath Home Medications: Medications to take at Discharge Multivitamin [Daily Multiple Vitamin] 1 ea PO DAILY 05/03/15 lisinopril 10 mg tablet 10 mg PO BID #180 tab 11/16/17 Naproxen Sodium [Aleve] 220 mg PO Q12H PRN PRN 12/11/17 aspirin 81 mg tablet,delayed release 81 mg PO DAILY 10/23/18 carvedilol 12.5 mg tablet 12.5 mg PO BID #180 tab 10/23/18 venlafaxine ER 150 mg capsule,extended release 24 hr 300 mg PO DAILY cap 10/23/18 Amoxicillin/Potassium Clav [Amox-Clav 875-125 mg Tablet] 1 tab PO BID 12/24/18 Ciprofloxacin HCl 1 tab PO Q12H 12/24/18 Terbinafine HCl 1 tab PO BID 12/24/18 Primary Care Physician: Anna Lange DO [Primary Care Provider] - Within 2 Weeks Please Follow Up With: Francia Barbosa DPM When: 1 week Disposition: Home Minutes spent on discharge:: 35 Patient Condition:: Good Medical Necessity - Tobacco Use Smoking Status: Current every day smoker Tobacco Use: Cigarettes Meaningful Use Info Meaningful Use Diagnoses (Choose all that apply): None applicable Code Visit OBSV E&M: 35982 Observation care discharge
--- NOTE | 2018-12-25 17:10 | DS.PCM_ITS ---
Discharge Date and Diagnosis - Problem List Patient Problems: Active and Suspected Problems (Last Reviewed 10/23/18 @ 13:58 by Haley Barrett) Cellulitis of left lower extremity (Acute) Left leg pain (Acute) Date of Admission: 12/24/18 Date of Discharge: 12/25/18 - Primary Discharge Diagnosis Active and Suspected Problems (Last Reviewed 10/23/18 @ 13:58 by Haley Barrett) Cellulitis of left lower extremity (Acute) Left leg pain (Acute) - Secondary Discharge Diagnosis Chronic Problems (Last Reviewed 10/23/18 @ 13:58 by Haley Barrett) Hyperglycemia (Chronic) Morbid obesity (Chronic) Premature atrial contraction (Chronic) Hypertrophic non-obstructive cardiomyopathy (Chronic) Essential hypertension (Chronic) Paroxysmal SVT (supraventricular tachycardia) (Chronic) Obstructive sleep apnea (Chronic) Premature ventricular contractions (Chronic) Abnormal electrocardiogram [ECG] [EKG] (Chronic) Cardiac dysrhythmia (Chronic) Nicotine abuse (Chronic) Alcohol abuse (Chronic) Cardiomyopathy (Chronic) Obesity (Chronic) Hospital Course and Treatment Imaging Results: 12/25/18 12:44 Extremity Lower WITH Contrast [CT] Urgent Clinical Impression(s) from Imaging Studies Abdomen/Pelvis CTA 12/24/18 16:55 IMPRESSION: No evidence of significant arterial pathology in the abdomen, pelvis, or lower extremities. Electronically Signed: Terrell Nunez MD at 18:38 EDT Tel , Service support , Chest CTA 12/24/18 16:55 IMPRESSION: No pulmonary embolus. No acute pulmonary findings. Aberrant right subclavian artery. Electronically Signed: Terrell Nunez MD at 18:33 EDT Tel , Service support , Lower Extremity CT 12/25/18 12:44 IMPRESSION: Cellulitis without evidence of abscess. No CT evidence of osteomyelitis. If there is further concern for osteomyelitis, consider correlation with three-phase bone scan or contrast-enhanced MRI. Electronically Signed: Terrell Nunez MD at 16:10 EDT Tel , Service support , Operations: None Procedures: None Summary of Care Provided: The patient is a 48 year old M who presents with left lower extremity pain. Patient underwent a work-up here, including a duplex of his lower extremities, CTA of the chest and abdomen all of which were negative. CT scan of his leg showed a cellulitis. 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 His leg wound is been poor to heal but did have a culture performed on the that showed Serratia, Klebsiella and group B streptococcus. Patient was on ciprofloxacin and amoxicillin clavulanic acid. Those antibiotics are efficient and effective for the current bacteria that he has an recommended that he continue with that. Recommend he keep his leg elevated as well. And reassurance provided to he and his mother who is at [facility]. Explained that things are getting better or if he does have signs symptoms that things may be getting worse to return to the emergency room. Explained that you have given that the open wound that he has could potentially be another source of resistant organism, such as MRSA, that may not be sensitive to those antibiotics. [] Patient Problems: Active and Suspected Problems (Last Reviewed 10/23/18 @ 13:58 by Haley Barrett) Cellulitis of left lower extremity (Acute) Left leg pain (Acute) - Physical Exam General: Alert, No apparent distress HEENT: Atraumatic, Normocephalic Oral: Moist Mucosa, No Gingival or Mucosal Lesions/ Ulcerations Extremities: No Calf Tenderness, Edema Skin: - - No erythema. Patient does have a distal left lower extremity wound that is clean and intact. Vital Signs Temp Pulse Resp BP Pulse Ox 36.6 C 62 18 136/94 H 100 12/25/18 16:00 12/25/18 16:00 12/25/18 16:00 12/25/18 16:00 12/25/18 16:00 Oxygen Delivery Method Room Air Weight: 175.1 kg Body Mass Index (BMI) 52.3 Intake and Output for Last 24 Hours 12/23/18 12/24/18 12/25/18 23:59 23:59 23:59 Intake Total 1929 1552 / 1552 Balance 1929 1552 / 1552 Laboratory Tests Past 24 Hrs 12/24/18 12/24/18 12/24/18 10:40 15:06 15:06 WBC RBC Hgb Hct MCV MCH MCHC RDW RDW Differential Plt Count MPV Immature Gran % (Auto) Neut % (Auto) Lymph % (Auto) Allen % (Auto) Eos % (Auto) Baso % (Auto) Absolute Neuts (auto) Absolute Lymphs (auto) Total Counted APTT 100.0 H* Sodium Potassium Chloride Carbon Dioxide Anion Gap BUN Creatinine Estim Creat Clear Calc Est GFR (MDRD) Af Amer Est GFR (MDRD) Non-Af BUN/Creatinine Ratio Glucose Hemoglobin A1c 5.5 Lactic Acid Calcium Phosphorus 3.7 Magnesium 1.7 Triglycerides Cholesterol LDL Cholesterol VLDL Cholesterol HDL Cholesterol 12/24/18 12/25/18 12/25/18 20:00 04:28 04:28 WBC 6.3 RBC 4.72 Hgb 15.2 Hct 46.0 MCV 97.5 H MCH 32.2 H MCHC 33.0 RDW 13.0 RDW Differential 45.6 H Plt Count 152 MPV 10.4 Immature Gran % (Auto) 0.500 Neut % (Auto) 57.0 Lymph % (Auto) 27.6 Allen % (Auto) 13.0 H Eos % (Auto) 1.6 Baso % (Auto) 0.3 Absolute Neuts (auto) 3.6 Absolute Lymphs (auto) 1.75 Total Counted Not Reportable APTT Sodium 142 Potassium 3.9 Chloride 111 H Carbon Dioxide 26.0 Anion Gap 5 BUN 12 Creatinine 0.66 L Estim Creat Clear Calc 151.87 Est GFR (MDRD) Af Amer 166 Est GFR (MDRD) Non-Af 138 BUN/Creatinine Ratio 18.2 Glucose 104 Hemoglobin A1c Lactic Acid 1.8 Calcium 8.4 L Phosphorus Magnesium Triglycerides 142 Cholesterol 130 LDL Cholesterol 51 VLDL Cholesterol 28 HDL Cholesterol 51 12/25/18 12/25/18 04:28 04:28 WBC RBC Hgb Hct MCV MCH MCHC RDW RDW Differential Plt Count MPV Immature Gran % (Auto) Neut % (Auto) Lymph % (Auto) Allen % (Auto) Eos % (Auto) Baso % (Auto) Absolute Neuts (auto) Absolute Lymphs (auto) Total Counted APTT 54.4 H Sodium Potassium Chloride Carbon Dioxide Anion Gap BUN Creatinine Estim Creat Clear Calc Est GFR (MDRD) Af Amer Est GFR (MDRD) Non-Af BUN/Creatinine Ratio Glucose Hemoglobin A1c Lactic Acid 1.7 Calcium Phosphorus Magnesium Triglycerides Cholesterol LDL Cholesterol VLDL Cholesterol HDL Cholesterol Discharge Diet: Low fat/ Low Cholesterol Discharge Activity: Return to Normal Activity Return to work on:: 12/27/18 Keep extremity elevated above heart level: Left Leg Call your doctor if your incision/area has: Increased Pain/ Swelling, Increased Redness Call your doctor if you observe: Fever of 101 or Higher, Inability to urinate, Shortness of breath Home Medications: Medications to take at Discharge Multivitamin [Daily Multiple Vitamin] 1 ea PO DAILY 05/03/15 lisinopril 10 mg tablet 10 mg PO BID #180 tab 11/16/17 Naproxen Sodium [Aleve] 220 mg PO Q12H PRN PRN 12/11/17 aspirin 81 mg tablet,delayed release 81 mg PO DAILY 10/23/18 carvedilol 12.5 mg tablet 12.5 mg PO BID #180 tab 10/23/18 venlafaxine ER 150 mg capsule,extended release 24 hr 300 mg PO DAILY cap 10/23/18 Amoxicillin/Potassium Clav [Amox-Clav 875-125 mg Tablet] 1 tab PO BID 12/24/18 Ciprofloxacin HCl 1 tab PO Q12H 12/24/18 Terbinafine HCl 1 tab PO BID 12/24/18 Primary Care Physician: Anna Lange DO [Primary Care Provider] - Within 2 Weeks Please Follow Up With: Francia Barbosa DPM When: 1 week Disposition: Home Minutes spent on discharge:: 35 Patient Condition:: Good Medical Necessity - Tobacco Use Smoking Status: Current every day smoker Tobacco Use: Cigarettes Meaningful Use Info Meaningful Use Diagnoses (Choose all that apply): None applicable Code Visit OBSV E&M: 18506 Observation care discharge
== END 2018-12-25 17:50 | disposition home or self-care (01) ==
LOC: ED 16:17 → MS3 22:47
PROVIDERS: Admitting Provider Family Medicine; Emergency Provider Emergency Medicine; Family Provider Family Medicine; PCP Family Medicine; Referring Provider Family Medicine
DX: L03.116 Cellulitis of left lower limb (principal); I80.202 Phlebitis and thrombophlebitis of unspecified deep vessels of left lower extremity; G62.9 Polyneuropathy, unspecified; G47.33 Obstructive sleep apnea (adult) (pediatric); I49.3 Ventricular premature depolarization; I47.1 Supraventricular tachycardia; E87.2 Acidosis; R73.9 Hyperglycemia, unspecified; E66.01 Morbid (severe) obesity due to excess calories; Z68.43 Body mass index [BMI] 50.0-59.9, adult; Z71.3 Dietary counseling and surveillance; Z79.899 Other long term (current) drug therapy; Z79.82 Long term (current) use of aspirin; Z86.718 Personal history of other venous thrombosis and embolism; F41.9 Anxiety disorder, unspecified; F32.9 Major depressive disorder, single episode, unspecified; F17.210 Nicotine dependence, cigarettes, uncomplicated; I11.9 Hypertensive heart disease without heart failure; I43 Cardiomyopathy in diseases classified elsewhere
CPT/HCPCS: 36415; 71275; 73701; 75635; 80048; 80061; 83036; 83605; 83735; 84100; 85025; 85610; 85730; 93005; 93971; 96365; 96366; 96376; 97802; 99285; J7030; Q9967; A4216

== ENCOUNTER → 2020-02-11 08:59 | Outpatient (CLI) | payer SELFPAY ==
[2018-12-24 16:57] VITALS: BMI 52.3
[2020-02-11 12:40] LABS: Absolute Lymphocyte Count 1.41 X10^3/uL (0.83-4.51); Absolute Neutrophil Count 4.4 X10^3/uL (2.0-7.7); Basophil# 0.02 X10^3/uL; Basophil% 0.3 % (0-1); Eosinophil# 0.11 X10^3/uL; Eosinophils% 1.7 % (0-5); Hematocrit 50.1 % (40-54); Hemoglobin 16.5 g/dL (13.0-16.5); Lymphocyte # 1.41 X10^3/ul (4.0); Lymphocyte % 21.3 % (19-41); Mean Corp Hgb Conc 32.9 g/dL (32-36); Mean Corpuscular Hgb 32.7 pg (27.0-32.0); Mean Corpuscular Volume 99.2 fL (80-94); Mean Platelet Vol. 10.5 fl (6.2-12.0); Monocyte# 0.65 X10^3/uL; Monocyte% 9.8 % (0-10); NRBC Flagged by Analyzer 0 % (0-5); Neutrophil # 4.39 X10^3/uL (2.7-7.7); Neutrophil % 66.1 % (47-70); Platelet Count 168 K/mm3 (150-450); RBC Distribution Width CV 12.7 % (11.6-14.6); RBC Distribution Width SD 46.2 fl (35.1-43.9); Red Blood Count 5.05 M/mm3 (4.6-6.2); White Blood Count 6.6 K/mm3 (4.4-11.0)
[2020-02-11 12:52] LABS: ALB/GLOB Ratio 1.1 RATIO (0.9-2.4); AST(SGOT) 32 U/L (15-37); Alanine Aminotransfer ALT/SGPT 44 U/L (16-61); Albumin, Serum 3.6 g/dL (3.2-5.0); Alkaline Phosphatase 87 U/L (45-117); Anion Gap 3 (5-15); BUN 11 mg/dL (7-18); BUN/Creat Ratio 15.1 RATIO (10-20); Calcium,Total 9.1 mg/dL (8.5-10.1); Chloride 106 mmol/L (98-107); Creatinine, Serum 0.73 mg/dL (0.70-1.30); EST Glomerular Filtration Rate 122 mL/min (>60); Est Glom Filt Rate - Afr Amer 147 mL/min (>60); Globulin 3.3 g/dL (2.2-4.2); Glucose 110 mg/dL (74-106); Potassium 4.3 mmol/L (3.5-5.1); Protein, Total 6.9 g/dL (6.4-8.2); Sodium Level 139 mmol/L (136-145)
[2020-02-12 09:51] LABS: SAR-COV-2 IGG ANTIBODY Negative (Negative)
== END ==
PROVIDERS: PCP Family Medicine; Referring Provider Family Medicine; Visit Provider Family Medicine
DX: R53.83 Other fatigue (principal); Z20.828 Contact with and (suspected) exposure to other viral communicable diseases; R50.9 Fever, unspecified
CPT/HCPCS: 80053; 85025; 86769; G2023

== ENCOUNTER → 2020-06-24 08:41 | Outpatient (CLI) | payer OTHER, SELFPAY ==
[2018-12-24 16:57] VITALS: BMI 52.3
--- NOTE | 2020-06-24 15:16 | PFTCOMP ---
COMPLETE PULMONARY FUNCTION TEST INTERPRETATION Brief HPI: Patient is a 49 year old male, currently under the care of Dr. Lange, who presents to [facility] for complete pulmonary function tests secondary to diagnosis of COPD. Respiratory therapist reports good effort and reproducible results. Interpretation: Forced expiration spirometry shows a moderately severe large airways obstructive ventilatory defect with an FEV1 of 68% predicted. There is a significant bronchodilator response in FVC and FEV1 by strict ATS criteria. Spirograms are of good quality and plateau slowly, indicating slowly emptying areas of the lungs. The respiratory flow volume loop shows decreased expiratory flow rates at high lung volumes consistent with small airways obstruction. Lung volumes by body plethysmography show an elevated total lung capacity at 10.17 L, 139% predicted. FRC and RV are elevated out of proportion. Lung volume measurements are consistent with hyperinflation and air-trapping. Diffusion capacity by carbon monoxide is decreased at 62% predicted. The airway resistance is slightly elevated. No previous pulmonary function tests were available for review. Impression: Partially reversible moderate large airways obstructive ventilatory defect with a symmetric reduction in diffusion capacity, resulting in air trapping with hyperinflation, and in a pattern consistent with COPD/asthma overlap syndrome
== END ==
PROVIDERS: PCP Family Medicine; Referring Provider Family Medicine; Visit Provider Family Medicine
DX: R06.00 Dyspnea, unspecified (principal); J44.9 Chronic obstructive pulmonary disease, unspecified
CPT/HCPCS: 94060; 94726; 94729

== ENCOUNTER → 2020-07-23 09:22 | Outpatient (CLI) | payer OTHER, SELFPAY ==
[2018-12-24 16:57] VITALS: BMI 52.3
[2020-07-23 12:34] LABS: Absolute Lymphocyte Count 1.12 X10^3/uL (0.83-4.51); Basophil# 0.03 X10^3/uL; Basophil% 0.5 % (0-1); Eosinophil# 0.13 X10^3/uL; Eosinophils% 2.2 % (0-5); Hematocrit 48.7 % (40-54); Hemoglobin 15.5 g/dL (13.0-16.5); Lymphocyte # 1.12 X10^3/ul (4.0); Lymphocyte % 18.9 % (19-41); Mean Corp Hgb Conc 31.8 g/dL (32-36); Mean Corpuscular Hgb 30.9 pg (27.0-32.0); Monocyte# 0.59 X10^3/uL; Monocyte% 9.9 % (0-10); NRBC Flagged by Analyzer 0 % (0-5); Neutrophil # 4.04 X10^3/uL (2.7-7.7); Platelet Count 153 K/mm3 (150-450); RBC Distribution Width CV 12.9 % (11.6-14.6); RBC Distribution Width SD 46.3 fl (35.1-43.9); Red Blood Count 5.02 M/mm3 (4.6-6.2); White Blood Count 5.9 K/mm3 (4.4-11.0)
[2020-07-23 12:48] LABS: ALB/GLOB Ratio 1.4 RATIO (0.9-2.4); AST(SGOT) 27 U/L (15-37); Alanine Aminotransfer ALT/SGPT 40 U/L (16-61); Albumin, Serum 3.7 g/dL (3.2-5.0); Alkaline Phosphatase 71 U/L (45-117); Anion Gap 7 (5-15); BUN 10 mg/dL (7-18); BUN/Creat Ratio 12.1 RATIO (10-20); Chloride 104 mmol/L (98-107); Cholesterol 110 mg/dL (200); Creatinine, Serum 0.83 mg/dL (0.70-1.30); EST Glomerular Filtration Rate 105 mL/min (>60); Est Glom Filt Rate - Afr Amer 127 mL/min (>60); Globulin 2.7 g/dL (2.2-4.2); Glucose 111 mg/dL (74-106); High Density Lipoprotein 49 mg/dL; Iron 118 ug/dL (65-175); Potassium 4.1 mmol/L (3.5-5.1); Protein, Total 6.4 g/dL (6.4-8.2); Sodium Level 136 mmol/L (136-145); Thyroid Stim Hormone (TSH) 0.72 uIU/mL (0.358-3.74); Triglycerides 93 mg/dL; Very Low Density Lipoprotein 19 mg/dL (5-40)
[2020-07-25 10:15] LABS: Hemoglobin A1c 5.4 % (3.8-5.6)
[2020-07-25 12:27] LABS: BNP,B-Type NATRIURETIC PEPTIDE 271.2 pg/mL (0-100)
== END ==
PROVIDERS: PCP Family Medicine; Visit Provider Family Medicine
DX: R06.00 Dyspnea, unspecified (principal); R53.83 Other fatigue
CPT/HCPCS: 36415; 80053; 80061; 83036; 83540; 83880; 84443; 85025

== ENCOUNTER → 2020-08-04 08:33 | Outpatient (CLI) | payer OTHER, SELFPAY ==
[2018-12-24 16:57] VITALS: BMI 52.3
--- NOTE | 2020-08-04 08:37 | US_ITS ---
STUDY: ABDOMINAL ULTRASOUND REASON FOR EXAM: Male, 49 years old. ABD PAIN AND DISTENTION -- R/O ASCITES TECHNIQUE: Transabdominal ultrasound was performed with real-time and static zepeda scale imaging. TECHNICAL QUALITY: Adequate. COMPARISON: Comparison is made with prior sonogram dated 03/15/2015. FINDINGS: Liver: The liver is enlarged and measures 23.5 cm. There is increased echogenicity consistent with fatty infiltration. The bile ducts are within normal limits. There is hepatic color flow. The direction of portal flow is hepatopetal. There is no demonstrated mass lesion. Portal vein measurement: Gallbladder: Normal distended gallbladder. The gallbladder wall measures 2.9 mm. There is a negative sonographic Collins''s sign. There is no pericholecystic fluid. There are no gallstones. Common Bile Duct (C.B.D.): The common bile duct measures 4.0 mm. Pancreas: There is nonvisualization of the pancreas due to overlying bowel gas. Spleen: Normal size of the spleen. The spleen measures 13.2 cm x 6.1 cm x 6.3 cm. Right Kidney: Normal size of the right kidney. The right kidney measures 13.1 cm x 8.6 cm x 7.4 cm. Normal renal cortex. The right cortex measures 2.5 cm. There is no demonstrated renal mass or cyst. There is no right hydronephrosis. Left Kidney: Normal size of the left kidney. The left kidney measures 12.9 cm x 8.3 cm x 6.6 cm. Normal renal cortex. The left cortex measures 2.7 cm. There is no demonstrated renal mass or cyst. There is no left hydronephrosis. Aorta: Obscured due to overlying bowel gas. I.V.C.: The IVC is patent. There is no ascites. US/Abdomen Complete IMPRESSION: Hepatomegaly and diffuse fatty infiltration of the liver. Electronically Signed: Chaka Donovan, at 13:29 EST , Service support ,
== END ==
PROVIDERS: PCP Family Medicine; Referring Provider Family Medicine; Visit Provider Family Medicine
DX: R10.84 Generalized abdominal pain (principal); R14.0 Abdominal distension (gaseous); F10.10 Alcohol abuse, uncomplicated
CPT/HCPCS: 76700

== ENCOUNTER → 2020-08-05 10:57 | Outpatient (CLI) | payer OTHER, SELFPAY ==
[2018-12-24 16:57] VITALS: BMI 52.3
[2020-08-05 12:11] LABS: Absolute Lymphocyte Count 1.13 X10^3/uL (0.83-4.51); Absolute Neutrophil Count 6.3 X10^3/uL (2.0-7.7); Basophil# 0.06 X10^3/uL; Basophil% 0.7 % (0-1); Eosinophil# 0.14 X10^3/uL; Eosinophils% 1.7 % (0-5); Hematocrit 49.6 % (40-54); Hemoglobin 15.4 g/dL (13.0-16.5); Lymphocyte # 1.13 X10^3/ul (4.0); Lymphocyte % 13.8 % (19-41); Mean Corpuscular Hgb 30.3 pg (27.0-32.0); Mean Corpuscular Volume 97.6 fL (80-94); Monocyte# 0.56 X10^3/uL; Monocyte% 6.8 % (0-10); NRBC Flagged by Analyzer 0 % (0-5); Neutrophil # 6.27 X10^3/uL (2.7-7.7); Neutrophil % 76.6 % (47-70); Platelet Count 163 K/mm3 (150-450); RBC Distribution Width CV 13.2 % (11.6-14.6); RBC Distribution Width SD 47.8 fl (35.1-43.9); Red Blood Count 5.08 M/mm3 (4.6-6.2); White Blood Count 8.2 K/mm3 (4.4-11.0)
[2020-08-05 12:33] LABS: ALB/GLOB Ratio 1.2 RATIO (0.9-2.4); AST(SGOT) 22 U/L (15-37); Alanine Aminotransfer ALT/SGPT 34 U/L (16-61); Albumin, Serum 3.6 g/dL (3.2-5.0); Alkaline Phosphatase 71 U/L (45-117); Anion Gap 5 (5-15); BUN 28 mg/dL (7-18); BUN/Creat Ratio 33.1 RATIO (10-20); Chloride 109 mmol/L (98-107); Creatinine, Serum 0.84 mg/dL (0.70-1.30); EST Glomerular Filtration Rate 103 mL/min (>60); Est Glom Filt Rate - Afr Amer 124 mL/min (>60); Globulin 2.9 g/dL (2.2-4.2); Glucose 120 mg/dL (74-106); Potassium 4.3 mmol/L (3.5-5.1); Protein, Total 6.5 g/dL (6.4-8.2); Sodium Level 140 mmol/L (136-145)
[2020-08-05 13:27] LABS: BNP,B-Type NATRIURETIC PEPTIDE 387.4 pg/mL (0-100)
== END ==
PROVIDERS: PCP Family Medicine; Visit Provider Family Medicine
DX: R53.83 Other fatigue (principal); I50.9 Heart failure, unspecified; Z51.81 Encounter for therapeutic drug level monitoring
CPT/HCPCS: 36415; 80053; 83880; 85025

== ENCOUNTER → 2020-08-08 11:30 | Outpatient (CLI) | payer OTHER, SELFPAY ==
[2018-12-24 16:57] VITALS: BMI 52.3
[2020-08-08 16:12] LABS: ALB/GLOB Ratio 1.3 RATIO (0.9-2.4); AST(SGOT) 13 U/L (15-37); Alanine Aminotransfer ALT/SGPT 28 U/L (16-61); Albumin, Serum 3.5 g/dL (3.2-5.0); Alkaline Phosphatase 68 U/L (45-117); Anion Gap 7 (5-15); BUN 24 mg/dL (7-18); BUN/Creat Ratio 18.3 RATIO (10-20); Chloride 100 mmol/L (98-107); Creatinine, Serum 1.31 mg/dL (0.70-1.30); EST Glomerular Filtration Rate 62 mL/min (>60); Est Glom Filt Rate - Afr Amer 75 mL/min (>60); Globulin 2.7 g/dL (2.2-4.2); Glucose 144 mg/dL (74-106); Potassium 3.6 mmol/L (3.5-5.1); Protein, Total 6.2 g/dL (6.4-8.2); Sodium Level 138 mmol/L (136-145)
[2020-08-08 16:36] LABS: BNP,B-Type NATRIURETIC PEPTIDE 313.1 pg/mL (0-100)
== END ==
PROVIDERS: PCP Family Medicine; Visit Provider Family Medicine
DX: R06.00 Dyspnea, unspecified (principal); I50.9 Heart failure, unspecified
CPT/HCPCS: 36415; 80053; 83880

== ENCOUNTER → 2020-08-11 15:17 | Outpatient (CLI) | payer OTHER, SELFPAY ==
[2018-12-24 16:57] VITALS: BMI 52.3
[2020-08-11 17:25] LABS: ALB/GLOB Ratio 1.2 RATIO (0.9-2.4); AST(SGOT) 20 U/L (15-37); Alanine Aminotransfer ALT/SGPT 26 U/L (16-61); Alkaline Phosphatase 75 U/L (45-117); Anion Gap 5 (5-15); BUN 39 mg/dL (7-18); BUN/Creat Ratio 21.5 RATIO (10-20); Calcium,Total 10.1 mg/dL (8.5-10.1); Chloride 91 mmol/L (98-107); Creatinine, Serum 1.81 mg/dL (0.70-1.30); EST Glomerular Filtration Rate 43 mL/min (>60); Est Glom Filt Rate - Afr Amer 52 mL/min (>60); Globulin 3.3 g/dL (2.2-4.2); Glucose 106 mg/dL (74-106); Potassium 4.1 mmol/L (3.5-5.1); Protein, Total 7.3 g/dL (6.4-8.2); Sodium Level 138 mmol/L (136-145)
== END ==
PROVIDERS: PCP Family Medicine; Visit Provider Family Medicine
DX: R06.00 Dyspnea, unspecified (principal); I50.9 Heart failure, unspecified
CPT/HCPCS: 36415; 80053; 83880

== ENCOUNTER → 2020-08-15 10:22 | Outpatient (CLI) | payer OTHER, SELFPAY ==
[2018-12-24 16:57] VITALS: BMI 52.3
[2020-08-15 12:22] LABS: ALB/GLOB Ratio 1.3 RATIO (0.9-2.4); AST(SGOT) 23 U/L (15-37); Alanine Aminotransfer ALT/SGPT 29 U/L (16-61); Alkaline Phosphatase 70 U/L (45-117); Anion Gap 5 (5-15); BUN 48 mg/dL (7-18); Calcium,Total 9.4 mg/dL (8.5-10.1); Chloride 101 mmol/L (98-107); Creatinine, Serum 1.37 mg/dL (0.70-1.30); EST Glomerular Filtration Rate 59 mL/min (>60); Est Glom Filt Rate - Afr Amer 71 mL/min (>60); Globulin 3.1 g/dL (2.2-4.2); Glucose 121 mg/dL (74-106); Potassium 4.1 mmol/L (3.5-5.1); Protein, Total 7.1 g/dL (6.4-8.2); Sodium Level 135 mmol/L (136-145)
[2020-08-15 12:30] LABS: BNP,B-Type NATRIURETIC PEPTIDE 262.3 pg/mL (0-100)
== END ==
PROVIDERS: PCP Family Medicine; Visit Provider Family Medicine
DX: R06.00 Dyspnea, unspecified (principal); I50.9 Heart failure, unspecified
CPT/HCPCS: 36415; 80053; 83880

== ENCOUNTER → 2020-08-25 08:35 | Outpatient (CLI) | payer OTHER, SELFPAY ==
[2018-12-24 16:57] VITALS: BMI 52.3
[2020-08-25 12:42] LABS: ALB/GLOB Ratio 1.2 RATIO (0.9-2.4); AST(SGOT) 16 U/L (15-37); Alanine Aminotransfer ALT/SGPT 25 U/L (16-61); Albumin, Serum 3.8 g/dL (3.2-5.0); Alkaline Phosphatase 79 U/L (45-117); Anion Gap 4 (5-15); BUN 33 mg/dL (7-18); BUN/Creat Ratio 24.6 RATIO (10-20); Calcium,Total 8.6 mg/dL (8.5-10.1); Chloride 97 mmol/L (98-107); Creatinine, Serum 1.34 mg/dL (0.70-1.30); EST Glomerular Filtration Rate 60 mL/min (>60); Est Glom Filt Rate - Afr Amer 73 mL/min (>60); Globulin 3.1 g/dL (2.2-4.2); Glucose 115 mg/dL (74-106); Potassium 5.1 mmol/L (3.5-5.1); Protein, Total 6.9 g/dL (6.4-8.2); Sodium Level 130 mmol/L (136-145)
[2020-08-25 12:43] LABS: BNP,B-Type NATRIURETIC PEPTIDE 260.2 pg/mL (0-100)
== END ==
PROVIDERS: PCP Family Medicine; Visit Provider Family Medicine
DX: N28.9 Disorder of kidney and ureter, unspecified (principal); I50.811 Acute right heart failure; Z51.81 Encounter for therapeutic drug level monitoring
CPT/HCPCS: 36415; 80053; 83880

== ENCOUNTER → 2020-09-02 11:09 | Outpatient (CLI) | payer OTHER, SELFPAY ==
[2020-09-02 09:49] VITALS: BMI 52.3
== END ==
PROVIDERS: PCP Family Medicine; Visit Provider Physician Assistant Medical
DX: I95.9 Hypotension, unspecified (principal); I42.2 Other hypertrophic cardiomyopathy; R55 Syncope and collapse; I47.1 Supraventricular tachycardia
CPT/HCPCS: 93225; 93226

== ENCOUNTER → 2020-09-03 12:44 | Outpatient (CLI) | payer OTHER, SELFPAY ==
[2020-09-02 09:49] VITALS: BMI 52.3
--- NOTE | 2020-09-03 12:45 | ECHOD_ITS ---
Reason For Study: SOB Procedure This was a 2D Doppler, Color Flow transthoracic echocardiogram. The study was technically difficult. Contrast injection was performed. Exam performed in department. Left Ventricle Based upon the 2D echocardiographic and contrast enhanced images obtained there appears to be grossly normal left ventricular size with mild global left ventricular systolic dysfunction. The estimated ejection fraction is 40 %. Unable to assess diastolic dysfunction. Right Ventricle Normal RV size. Normal systolic function. Atria The left atrium is mildly enlarged. The right atrium is mildly enlarged. No doppler evidence for ASD. Mitral Valve There is no mitral annular calcification. Normal mitral valve. Trivial mitral valve insufficiency. Tricuspid Valve Normal tricuspid valve. Trivial tricuspid valve insufficiency. Unable to estimate RV systolic pressure/pulmonary artery pressure due to technically difficult study. Aortic Valve Trisinus/trileaflet aortic valve. Normal aortic valve. Pulmonic Valve The pulmonic valve is not well visualized. Great Vessels Normal sized aortic root. Pericardium/Pleural No pericardial effusion. Medication 22 gauge I.V. with prn adaptor inserted into right arm. Diluted definity 5ml given slow IV push to enhance endocardial definition. MMode/2D Measurements & Calculations LVIDd: 5.6 cm IVSd: 0.79 cm Ao root diam: 3.7 cm LVIDs: 3.9 cm LVPWd: 0.82 cm FS: 29.4 % LAV(MOD-bp): 81.5 ml LA A4 area: 23.0 cm2 LA dimension(2D): 4.0 cm LAV(MOD-bp) Indexed: 28.9 ml/m2 LAV(MOD-sp2): 98.7 ml LAV(MOD-sp4): 64.8 ml RA A4 area: 21.6 cm2 Doppler Measurements & Calculations MV E max monika: 103.6 cm/sec Ao V2 max: 142.2 cm/sec LV V1 max: 111.5 cm/sec Ao max P.1 mmHg LV V1 max P.0 mmHg PA V2 max: 70.9 cm/sec Interpretation Summary The study was technically difficult. Contrast injection was performed. Based upon the 2D echocardiographic and contrast enhanced images obtained there appears to be grossly normal left ventricular size with mild global left ventricular systolic dysfunction. The estimated ejection fraction is 40 %. The left atrium is mildly enlarged. The right atrium is mildly enlarged. Trivial mitral valve insufficiency. Trivial tricuspid valve insufficiency. Unable to estimate RV systolic pressure/pulmonary artery pressure due to technically difficult study. Unable to assess diastolic dysfunction. Comment: The underlying rhythm appears compatible with atrial fibrillation. Ordering Physician: Haley Carpio/Nick Davidson Referring Physician: Anna Lange Performed By: Jody Yusuf RDCS
== END ==
PROVIDERS: PCP Family Medicine; Visit Provider Physician Assistant Medical
DX: R06.00 Dyspnea, unspecified (principal); R06.02 Shortness of breath; I95.9 Hypotension, unspecified; I42.2 Other hypertrophic cardiomyopathy; R55 Syncope and collapse; I47.1 Supraventricular tachycardia
CPT/HCPCS: 93306; Q9957; A4216; C8929

== ENCOUNTER → 2020-09-05 14:46 | Outpatient (CLI) | payer OTHER, SELFPAY ==
[2020-09-02 09:49] VITALS: BMI 52.3
[2020-09-05 18:10] LABS: Anion Gap 8 (5-15); BUN 28 mg/dL (7-18); BUN/Creat Ratio 26.7 RATIO (10-20); Calcium,Total 9.1 mg/dL (8.5-10.1); Chloride 100 mmol/L (98-107); Creatinine, Serum 1.05 mg/dL (0.70-1.30); EST Glomerular Filtration Rate 80 mL/min (>60); Est Glom Filt Rate - Afr Amer 97 mL/min (>60); Glucose 118 mg/dL (74-106); Potassium 4.1 mmol/L (3.5-5.1); Sodium Level 135 mmol/L (136-145)
== END ==
PROVIDERS: PCP Family Medicine; Visit Provider Internal Medicine Cardiovascular Disease
DX: I48.91 Unspecified atrial fibrillation (principal); I42.2 Other hypertrophic cardiomyopathy; I47.1 Supraventricular tachycardia
CPT/HCPCS: 36415; 80048

== ENCOUNTER → 2020-09-16 08:52 | Outpatient (CLI) | payer OTHER, SELFPAY ==
[2020-09-02 09:49] VITALS: BMI 52.3
[2020-09-16 13:00] LABS: Anion Gap 8 (5-15); BUN 58 mg/dL (7-18); BUN/Creat Ratio 46.8 RATIO (10-20); Calcium,Total 9.5 mg/dL (8.5-10.1); Chloride 96 mmol/L (98-107); Creatinine, Serum 1.24 mg/dL (0.70-1.30); EST Glomerular Filtration Rate 66 mL/min (>60); Est Glom Filt Rate - Afr Amer 80 mL/min (>60); Glucose 100 mg/dL (74-106); Potassium 4.2 mmol/L (3.5-5.1); Sodium Level 131 mmol/L (136-145)
[2020-09-16 13:30] LABS: Digoxin Level 0.65 ng/mL (0.80-2.00)
== END ==
PROVIDERS: PCP Family Medicine; Visit Provider Internal Medicine Cardiovascular Disease
DX: I48.91 Unspecified atrial fibrillation (principal); I47.1 Supraventricular tachycardia; I10 Essential (primary) hypertension; I49.1 Atrial premature depolarization; Z79.899 Other long term (current) drug therapy
CPT/HCPCS: 36415; 80048; 80162

== ENCOUNTER → 2020-09-29 08:05 | Outpatient (CLI) | payer OTHER, SELFPAY ==
[2020-09-16 10:19] VITALS: BMI 52.7
--- NOTE | 2020-09-29 08:07 | RAD_ITS ---
STUDY: X-RAY CHEST REASON FOR EXAM: Male, 50 years old. Dyspnea on exertion TECHNIQUE: PA and lateral views of the chest. COMPARISON: Comparison is made with prior study dated 08/03/2014. FINDINGS: Hyperinflation. The lungs are clear. There is no demonstrated pleural abnormality. Normal size heart. Normal mediastinum and shahana. Normal visualized pulmonary arteries. Normal visualized aortic arch and descending thoracic aorta. There are diffuse degenerative changes of the visualized thoracic spine. Normal visualized ribs, clavicles, and shoulders. There is no demonstrated abnormality of the visualized soft tissue structures of the upper abdomen. RAD/Chest PA and Lateral IMPRESSION: Hyperinflation. Electronically Signed: Chaka Donovan MD at 10:15 EST , Service support ,
[2020-09-29 09:50] LABS: Absolute Lymphocyte Count 1.73 X10^3/uL (0.83-4.51); Absolute Neutrophil Count 5.9 X10^3/uL (2.0-7.7); Basophil# 0.03 X10^3/uL; Basophil% 0.3 % (0-1); Eosinophil# 0.11 X10^3/uL; Eosinophils% 1.3 % (0-5); Hematocrit 45.8 % (40-54); Hemoglobin 15.9 g/dL (13.0-16.5); Lymphocyte # 1.73 X10^3/ul (4.0); Lymphocyte % 20.1 % (19-41); Mean Corp Hgb Conc 34.7 g/dL (32-36); Mean Corpuscular Hgb 30.3 pg (27.0-32.0); Mean Corpuscular Volume 87.2 fL (80-94); Mean Platelet Vol. 10.5 fl (6.2-12.0); Monocyte# 0.81 X10^3/uL; Monocyte% 9.4 % (0-10); NRBC Flagged by Analyzer 0 % (0-5); Neutrophil # 5.88 X10^3/uL (2.7-7.7); Neutrophil % 68.6 % (47-70); Platelet Count 171 K/mm3 (150-450); RBC Distribution Width CV 13.2 % (11.6-14.6); RBC Distribution Width SD 41.1 fl (35.1-43.9); Red Blood Count 5.25 M/mm3 (4.6-6.2); White Blood Count 8.6 K/mm3 (4.4-11.0)
[2020-09-29 10:02] LABS: International Normalized Ratio 1.2; Partial Thromboplast Time 27.4 Seconds (24.1-36.2); Prothrombin Time (Protime)PT. 14.3 SECONDS (11.7-14.9)
[2020-09-29 10:24] LABS: Anion Gap 8 (5-15); BUN 27 mg/dL (7-18); BUN/Creat Ratio 23.1 RATIO (10-20); Calcium,Total 9.4 mg/dL (8.5-10.1); Chloride 93 mmol/L (98-107); Creatinine, Serum 1.17 mg/dL (0.70-1.30); EST Glomerular Filtration Rate 70 mL/min (>60); Est Glom Filt Rate - Afr Amer 85 mL/min (>60); Glucose 143 mg/dL (74-106); Potassium 2.6 mmol/L (3.5-5.1); Sodium Level 135 mmol/L (136-145)
== END ==
PROVIDERS: PCP Family Medicine; Referring Provider Physician Assistant Medical; Visit Provider Physician Assistant Medical
DX: I48.91 Unspecified atrial fibrillation (principal); R06.00 Dyspnea, unspecified; R53.83 Other fatigue
CPT/HCPCS: 36415; 71046; 80048; 85025; 85610; 85730

== ENCOUNTER → 2020-10-03 14:10 | Outpatient (CLI) | payer OTHER, SELFPAY ==
[2020-09-16 10:19] VITALS: BMI 52.7
[2020-10-02 09:21] VITALS: BMI 53.1
[2020-10-03 12:22] LABS: Absolute Lymphocyte Count 1.63 X10^3/uL (0.83-4.51); Basophil# 0.02 X10^3/uL; Basophil% 0.3 % (0-1); Eosinophil# 0.15 X10^3/uL; Eosinophils% 2.4 % (0-5); Hematocrit 43.8 % (40-54); Hemoglobin 14.6 g/dL (13.0-16.5); Lymphocyte # 1.63 X10^3/ul (4.0); Lymphocyte % 25.5 % (19-41); Mean Corp Hgb Conc 33.3 g/dL (32-36); Mean Corpuscular Hgb 29.6 pg (27.0-32.0); Mean Corpuscular Volume 88.8 fL (80-94); Mean Platelet Vol. 10.7 fl (6.2-12.0); Monocyte# 0.55 X10^3/uL; Monocyte% 8.6 % (0-10); NRBC Flagged by Analyzer 0 % (0-5); Neutrophil # 3.99 X10^3/uL (2.7-7.7); Neutrophil % 62.6 % (47-70); Platelet Count 167 K/mm3 (150-450); RBC Distribution Width CV 13.6 % (11.6-14.6); RBC Distribution Width SD 43.9 fl (35.1-43.9); Red Blood Count 4.93 M/mm3 (4.6-6.2); White Blood Count 6.4 K/mm3 (4.4-11.0)
[2020-10-03 13:05] LABS: Anion Gap 7 (5-15); BUN 21 mg/dL (7-18); BUN/Creat Ratio 22.2 RATIO (10-20); Calcium,Total 8.9 mg/dL (8.5-10.1); Chloride 98 mmol/L (98-107); Creatinine, Serum 0.95 mg/dL (0.70-1.30); EST Glomerular Filtration Rate 90 mL/min (>60); Est Glom Filt Rate - Afr Amer 109 mL/min (>60); Glucose 141 mg/dL (74-106); Magnesium 2.3 mg/dL (1.6-2.6); Potassium 3.4 mmol/L (3.5-5.1); Sodium Level 138 mmol/L (136-145)
== END ==
PROVIDERS: Physician Assistant Medical; PCP Family Medicine; Visit Provider Family Medicine
DX: E87.6 Hypokalemia (principal); K92.1 Melena; Z51.81 Encounter for therapeutic drug level monitoring
CPT/HCPCS: 80048; 83735; 85025

== ENCOUNTER → 2020-10-16 16:09 | Outpatient (CLI) | payer OTHER, SELFPAY ==
[2020-10-13 08:42] VITALS: BMI 53.9
[2020-10-16 17:52] LABS: Absolute Lymphocyte Count 2.12 X10^3/uL (0.83-4.51); Absolute Neutrophil Count 6.1 X10^3/uL (2.0-7.7); Basophil# 0.05 X10^3/uL; Basophil% 0.5 % (0-1); Eosinophil# 0.14 X10^3/uL; Eosinophils% 1.5 % (0-5); Hematocrit 43.5 % (40-54); Hemoglobin 14.3 g/dL (13.0-16.5); Lymphocyte # 2.12 X10^3/ul (4.0); Lymphocyte % 22.5 % (19-41); Mean Corp Hgb Conc 32.9 g/dL (32-36); Mean Corpuscular Hgb 29.9 pg (27.0-32.0); Mean Corpuscular Volume 90.8 fL (80-94); Mean Platelet Vol. 10.7 fl (6.2-12.0); Monocyte# 0.99 X10^3/uL; Monocyte% 10.5 % (0-10); NRBC Flagged by Analyzer 0 % (0-5); Neutrophil # 6.06 X10^3/uL (2.7-7.7); Neutrophil % 64.5 % (47-70); Platelet Count 212 K/mm3 (150-450); RBC Distribution Width CV 15.3 % (11.6-14.6); RBC Distribution Width SD 49.5 fl (35.1-43.9); Red Blood Count 4.79 M/mm3 (4.6-6.2); White Blood Count 9.4 K/mm3 (4.4-11.0)
[2020-10-16 18:38] LABS: BNP,B-Type NATRIURETIC PEPTIDE 62.1 pg/mL (0-100)
[2020-10-16 18:41] LABS: AST(SGOT) 24 U/L (15-37); Alanine Aminotransfer ALT/SGPT 38 U/L (16-61); Albumin, Serum 3.5 g/dL (3.2-5.0); Alkaline Phosphatase 83 U/L (45-117); Anion Gap 7 (5-15); BUN 33 mg/dL (7-18); BUN/Creat Ratio 28.4 RATIO (10-20); Calcium,Total 8.9 mg/dL (8.5-10.1); Chloride 94 mmol/L (98-107); Creatinine, Serum 1.16 mg/dL (0.70-1.30); EST Glomerular Filtration Rate 71 mL/min (>60); Est Glom Filt Rate - Afr Amer 86 mL/min (>60); Globulin 3.6 g/dL (2.2-4.2); Glucose 182 mg/dL (74-106); Magnesium 2.4 mg/dL (1.6-2.6); Potassium 3.8 mmol/L (3.5-5.1); Protein, Total 7.1 g/dL (6.4-8.2); Sodium Level 135 mmol/L (136-145)
== END ==
PROVIDERS: PCP Family Medicine; Visit Provider Family Medicine
DX: I50.9 Heart failure, unspecified (principal); I42.9 Cardiomyopathy, unspecified; E87.6 Hypokalemia; I50.810 Right heart failure, unspecified
CPT/HCPCS: 36415; 80053; 83735; 83880; 85025

== ENCOUNTER 2020-11-04 07:41 | Day surgery (SDC) | payer OTHER, SELFPAY ==
[2020-09-16 10:19] VITALS: BMI 52.7
--- NOTE | 2020-10-03 06:57 | HP_ITS ---
HPI HPI History of Present Illness Surgical H&P: Yes Details: This is a 50-year-old gentleman that presents here today for a cardiovascular follow-up. He was last in our office in 2019. He does have a history of nonischemic cardiomyopathy which has resolved in the past, PACs/PVCs, PSVT with aberrancy versus PVT, obesity and atypical chest discomfort. Patient was in our office 2 weeks ago. There was concern over his increased shortness of breath and weight gain that he had. He had noted fluid and swelling in his abdomen. His PCP had obtained an abdominal ultrasound which was negative. He did lose the fluid within 1 week of starting diuretics. Since that time though he had noted he was lightheaded and dizzy with his diuretics. Patient did undergo an echocardiogram. His ejection fraction was noted to be 40%. He did have a Holter monitor which demonstrated atrial fibrillation. He was started on an anticoagulant. We were considering increasing his Coreg however patient was concerned about low blood pressure readings and history of syncope. We added digoxin. He then called our office with complaints of lightheadedness and dizziness where his blood pressure readings were low. He felt lightheaded with this. His lisinopril was held. pt still notes that he has been dizzy and having low BP readings. He has been taking his bumex 2 mg alternating 1 mg. He is unable to decrease this further d/t swelling and weight gain. He misunderstood and stopped his Coreg and not his lisinopril. He sts that when he does not take the diuretics he gains weight. Intake Vital Signs 09/16/20 Height 6 ft 09/16/20 Weight: 389 lb 09/16/20 BP 93/63 09/16/20 Blood Pressure Location Lt brachial 09/16/20 Position Sitting 09/16/20 Respiration 18 09/16/20 Pulse 77 09/16/20 Pulse Source Monitor 09/16/20 Pulse Oximetry (%) 100 Intake Visit Reasons: 2 WK F/U (HOLTER & ECHO) Pantograph Watcher Required: No Accompanied by: None Is patient in pain?: No Allergies No Known Allergies Allergy (Verified 09/16/20 10:17) Medications Multivitamin [Daily Multiple Vitamin] 1 ea PO DAILY 05/03/15 [History Confirmed 09/16/20] aspirin 81 mg tablet,delayed release 81 mg PO DAILY 10/23/18 [History Confirmed 09/16/20] carvedilol 12.5 mg tablet 12.5 mg PO BID #180 tab 10/23/18 [Rx Confirmed 09/16/20] lisinopril 10 mg tablet 10 mg PO BID #180 tab 02/20/19 [Rx Confirmed 09/16/20] naproxen sodium 220 mg tablet 440 mg PO Q12H tab 09/02/20 [History Confirmed 09/16/20] omega-3 fatty acids 1,000 mg capsule 1,000 mg PO DAILY 09/02/20 [History Confirmed 09/16/20] apixaban 5 mg tablet 5 mg PO BID #60 tab 09/04/20 [Rx Confirmed 09/16/20] digoxin 250 mcg (0.25 mg) tablet 250 mcg PO DAILY #30 tab 09/08/20 [Rx Confirmed 09/16/20] bumetanide 1 mg tablet See Rx Instructions PO .COMPLEX 09/16/20 [History Confirmed 09/16/20] [facility] Medical History Atrial fibrillation (Acute) Dyspnea (Acute) Fatigue (Acute) Premature atrial contraction (Chronic) Hypertrophic non-obstructive cardiomyopathy (Chronic) Essential hypertension (Chronic) Paroxysmal SVT (supraventricular tachycardia) (Chronic) Obstructive sleep apnea (Chronic) Premature ventricular contractions (Chronic) Cardiac dysrhythmia (Chronic) Cardiomyopathy (Chronic) Anemia (Acute) Insomnia (Chronic) Knee pain (Chronic) Chest pain (Resolved) History of DVT (deep vein thrombosis) (Resolved) bleeding lungs (Resolved) Deep vein thrombosis, lower left extremity (Inactive) Surgical History History of arthroscopic knee surgery (Resolved) History of tonsillectomy (Resolved) S/P arthroscopy of left knee (Resolved) renal calculi excision (Resolved) Family History Unknown No problems noted. Social History (Updated 09/16/20 @ 17:18 by Haley HARRY, PA) alcohol intake: former substance use type: does not use caffeine: No what type of physical activity do you participate in: none seatbelt use: always do you feel safe at home: Yes ROS Const Const: Positive for fatigue, weakness and weight gain; negative for fever(s) or headache(s) Eyes Eyes: Negative for blind spots, loss of peripheral vision or transient loss of vision ENT ENT: Negative for headache(s), dizziness, tinnitus or Nosebleed/epistaxis Cardio Chest Pain: No Palpitations: No Edema: None Muscle aches with walking: None Resp Respiratory: Positive for SOB with activity and SOB orthopnea\SOB lying down; negative for SOB at rest or Cough GI GI: Negative nausea, vomiting, heartburn or vomiting blood/hematemesis : Negative for hematuria Musc Musc: Negative for muscle aches/ myalgia Neuro Neuro: Positive for weakness; negative for dizziness, lightheadedness, near syncope, syncope, orthostatic symptoms or headache(s) Andrew Hematologic/Lymphatic: Negative for easy bleeding Endo Endo: Positive for fatigue Cardiology Exam Const Appearance: cooperative, healthy appearing, comfortable, no acute distress, well developed and well groomed Nutritional Appearance: obese Orientation: alert, awake and oriented x3 Head Head: normal to inspection, normocephalic and atraumatic Ears: hearing grossly normal bilaterally Nose: external nose normal Face and Sinus: face symmetric Mouth: moist mucous membranes Teeth and gingiva: fair dentition Eyes Eyelids: eyelids normal Conjunctivae: conjunctivae normal Pupils: PERRL EOM: EOM intact bilaterally Neck Neck: normal visual inspection, full ROM and no JVD Carotids: normal carotid upstroke; negative bruit Neck Mass: Negative Neck mass Chest Chest inspection: normal inspection of the chest, symmetric chest movement and normal respiratory effort Auscultation: Bilateral: Clear to Auscultation Cardio Palpation: normal PMI Rate: regular rate Rhythm: irregularly irregular Heart sounds: S1 normal and S2 normal; negative rub, gallop or murmur GI GI: normal to inspection, soft, bowel sounds present and obese Neuro General: alert, awake, oriented x3 and moves all extremities Extremities Pulses: Normal: Right Posterior Tibial Pulse, Left Posterior Tibial Pulse, Right Radial Pulse, Left Radial Pulse Lower Extremity Edema: None: Bilateral Psych Psychological: normal affect Assessment & Plan 1. Atrial fibrillation I48.91 Plan Patient is still in atrial flutter. He is not symptomatic with palpitations however I do believe he is symptomatic with shortness of breath, fatigue and weight gain. We will have him resume his Coreg. He will continue with his digoxin. For now he will continue with his current dose of Bumex. Feel that his atrial fibrillation is contributing to his congestive heart failure. We will plan for a cardioversion in the near future. Patient Instructions Please review your medication list when you get home, let me know if there is anything different Your cardioversion is tentatively scheduled for 09/30 at 1200 with an arrival time of 1030 Your instructions for your cardioversion are: Nothing to eat or drink after midnight You will need a form setter/driver I will go over the medications to take the morning when we review your medications Orders Orders: 12 Lead EKG performed by [facility] Today 2. Hypertrophic nonobstructive cardiomyopathy I42.2 Plan Patient is having symptoms of congestive heart failure. He will resume his Coreg for his low blood pressure readings he will hold his lisinopril. He will continue with current dose of digoxin. 3. Hypotension I95.9 Plan Reviewed medications with Dr. Davidson. Patient will resume his Coreg, he will stop his lisinopril. He will continue with his digoxin and his diuretics. We will follow with patient closely. Have asked us to keep in touch with us regarding blood pressure readings in case if we need to make further adjustments. Plan Detail Other Medications On Hold: carvedilol Hold Comment: held per pt 12.5 mg PO BID 180 tabs 3RF Resumed: lisinopril 10 mg PO BID 180 tabs 3RF Additional Comments Patient is requesting a letter for his employment stating that he cannot work until Tuesday. This will be done for him. This will also need to be reassessed at that time based on how he is feeling. He may not to be feeling better until after his cardioversion. Follow Up 09/16/20 (please schedule cardioversion 09/30 with PFM) 1 Month (MMM) Coding Level of Care Code Off vis,est,level 4 Diagnoses Atrial fibrillation I48.91 Hypertrophic nonobstructive cardiomyopathy I42.2 ??Cardiomyopathy type: non-obstructive hypertrophic Hypotension I95.9 Coding Level of Care Code Off vis,est,level 4 Diagnoses Atrial fibrillation I48.91 Hypertrophic nonobstructive cardiomyopathy I42.2 ??Cardiomyopathy type: non-obstructive hypertrophic Hypotension I95.9 Supplemental Info Supplemental Information Echocardiogram from 2015 demonstrates an ejection fraction of 55%. Trivial mitral and tricuspid insufficiency. Echocardiogram 09/03/2020: The study was technically difficult. Contrast injection was performed. Based upon the 2D echocardiographic and contrast enhanced images obtained there appears to be grossly normal left ventricular size with mild global left ventricular systolic dysfunction. The estimated ejection fraction is 40 %. The left atrium is mildly enlarged. The right atrium is mildly enlarged. Trivial mitral valve insufficiency. Trivial tricuspid valve insufficiency. Unable to estimate RV systolic pressure/pulmonary artery pressure due to technically difficult study. Unable to assess diastolic dysfunction. Comment: The underlying rhythm appears compatible with atrial fibrillation. Dobutamine stress echocardiogram in 2016 was negative for ischemia. Labs LDL Cholesterol 42 mg/dL (0-130) 07/23/20 HDL Cholesterol 49 mg/dL (40-) 07/23/20 Triglycerides 93 mg/dL (-199) 07/23/20 VLDL Cholesterol 19 mg/dL (5-40) 07/23/20 Diagnostics Electrocardiogram 09/16/20 Echocardiogram 09/03/20 Abdomen Ultrasound 08/04/20 Pulmonary Pulmonary Function Test 06/24/20 COVID (Procedure Consent) Procedure Criteria Procedure Criteria: Yes Elective The surgeon/proceduralist and patient have discussed in detail the risk of exposure to and/or potential harm posed by the COVID-19 virus with having a surgery/procedure at this time versus the risk of? delaying the surgery/procedure. It is not possible to know either the risk of delaying the surgery or procedure or chance of getting an infection with perfect accuracy, but a joint decision was made between the patient and the surgeon/proceduralist ?to proceed at this time with the scheduled surgery/procedure as indicated on the consent form. I have examined the patient the following changes are noted: The patient had subsequent outpatient ECG follow-up. He appeared to be in sinus rhythm. The patient's case was discussed with him. Status post discussion the recommendation was to proceed with further evaluation of his cardiopulmonary status with a diagnostic cardiac catheterization including a right heart cardiac catheterization if possible. The procedure and risks were discussed with him. He was agreeable to this approach. The patient subsequently noted concerns of hematochezia. His platelets/anticoagulation therapy was placed on hold. He did undergo general surgical evaluation. Recommendation was made to proceed with colonoscopy, however, he is chose not to do so at this time. He has stated he wants to proceed with his diagnostic cardiac catheterization first knowing that if he was found to have underlying CAD that would require catheter-based or surgical based revascularization he may still need to have his colonoscopy performed prior to proceeding with such revascularization therapy. He acknowledged this information. Thus at the present time he is going to continue his medical management. He is going to proceed with medications as tolerated. He is going to proceed with his cardiovascular study. Depending upon the findings he may or may not need further cardiac versus noncardiac evaluation and care including pursuing his gastroenterology related issues. This note was generated using a voice recognition system and there may be incorrect words, spelling or punctuation that were not noted when reviewing the office note prior to saving.
[2020-10-10 12:25] LABS: Anion Gap 7 (5-15); BUN 27 mg/dL (7-18); BUN/Creat Ratio 26.7 RATIO (10-20); Calcium,Total 9.1 mg/dL (8.5-10.1); Chloride 92 mmol/L (98-107); Creatinine, Serum 1.01 mg/dL (0.70-1.30); EST Glomerular Filtration Rate 83 mL/min (>60); Est Glom Filt Rate - Afr Amer 101 mL/min (>60); Glucose 141 mg/dL (74-106); Potassium 3.3 mmol/L (3.5-5.1); Sodium Level 134 mmol/L (136-145)
[2020-10-13 08:42] VITALS: BMI 53.9
[2020-11-04 09:46] LABS: Blood Gas Specimen Type VEN; VBG BASE EXCESS 4 mmol/L (-1.0-3.5); VBG Bicarbonate 29 mmol/L (22-26); VBG PO2 23 mmHg (25-40); VBG SO2 39 % (50-70); VBG TCO2 31 mmol/L (23-33); VBG pCO2 48.2 mmHg (41-51); VBG pH 7.39 (7.32-7.42)
[2020-11-04 09:46] LABS: Blood Gas Specimen Type VEN; VBG BASE EXCESS 7 mmol/L (-1.0-3.5); VBG Bicarbonate 31 mmol/L (22-26); VBG PO2 31 mmHg (25-40); VBG SO2 61 % (50-70); VBG TCO2 33 mmol/L (23-33); VBG pCO2 47.2 mmHg (41-51); VBG pH 7.43 (7.32-7.42)
[2020-11-04 09:50] LABS: Base Excess 5 mmol/L (-2 to +2); Bicarbonate 28.4 mmol/L (22-26); Blood Gas Specimen Type ART; PO2 83 mmHG (75-100); SO2 97 % (95-99); Total Carbon Dioxide 30 mmol/L; pCO2 36.5 mmHg (35-45)
[2020-11-04 11:11] LABS: Blood Gas Specimen Type VEN; VBG BASE EXCESS 3 mmol/L (-1.0-3.5); VBG Bicarbonate 28 mmol/L (22-26); VBG PO2 50 mmHg (25-40); VBG SO2 85 % (50-70); VBG TCO2 29 mmol/L (23-33); VBG pCO2 43.2 mmHg (41-51); VBG pH 7.42 (7.32-7.42)
[2020-11-04 11:11] LABS: Blood Gas Specimen Type VEN; VBG BASE EXCESS 5 mmol/L (-1.0-3.5); VBG Bicarbonate 29 mmol/L (22-26); VBG PO2 35 mmHg (25-40); VBG SO2 68 % (50-70); VBG TCO2 31 mmol/L (23-33); VBG pCO2 44.6 mmHg (41-51); VBG pH 7.42 (7.32-7.42)
[2020-11-04 11:15] LABS: Blood Gas Specimen Type VEN; VBG BASE EXCESS 6 mmol/L (-1.0-3.5); VBG Bicarbonate 31 mmol/L (22-26); VBG PO2 32 mmHg (25-40); VBG SO2 60 % (50-70); VBG TCO2 32 mmol/L (23-33); VBG pCO2 47.7 mmHg (41-51); VBG pH 7.41 (7.32-7.42)
[2020-11-04 13:15] LABS: Bedside Glucose 174 mg/dL (70-110)
--- NOTE | 2020-11-04 20:29 | CL.D_ITS ---
Patient Name: ILA RICO Study Date: 11/04/2020 Performing: Nick Davidson MD Ht: 72 inches 183 cm : 1970 Wt: 399.6 lbs 181 kg Age: 50 Gender: male BSA: 2.86 PROCEDURE(S) PERFORMED GR20-WJS/LHC/COR/LV CLINICAL PROFILE AND INDICATIONS Indications: Cardiac Arrythmia, Cardiomyopathy Heart Failure: NYHA Class: 3, Newly Diagnosed: No, Heart Failure Type: Systolic Stress/Imaging Stress/Image Study Performed: No Angina Classification Anginal Classification w/in 2 Weeks: Anginal Equivalent Dyspnea CAD Presentations: Other: shortness of breath CONCLUSIONS Right heart pressures - borderline to mildly elevated The patient has pulmonary hypertension which is borderline to mild. Intracardiac shunting: None Elevated Left Ventricular End Diastolic Pressure Global LV systolic dysfunction- Mild LVEF: by LV gram 40 % Comment: The right radial artery approach did not appear to allow the cardiac catheters to traverse t he right subclavian artery into the ascending aorta. S/P review of the case with Dr. 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 Dr. Perkins then a ssisted in the case and subsequently performed a right subclavian artery arteriogram. S/P review of t he arterigram suggeting an aberrant right subclavian artery course it was elected to discontinue use of the right radial artery approach and proceed with a right femoral artery approach for the left hea rt catheterization. The right radial artery sheath was subsequently removed and the post radial arter y cardiac catheterization protocol was followed. Dr. Perkins then accessed the right femoral artery and subsequently performed the left heart catherterization procedure and completed the cardiac hernando terization procedure. S/P review of the patients overall case and patients body habitus / morbid obesity, Dr. Perkins rec ommended performing a right femoral artery closure device to minimize the risk of post procedure hemo rrhagic issues. He then performed this procedure without obvious complication. At the conclusion of t he case the patient appeared to be symptomatically and hemodynamically stable. RECOMMENDATIONS Risk factor modification Medical therapy Comment: Case findings and recommendations were discussed and reviewed with Dr. Perkins of [facility] DESCRIPTION OF PROCEDURE The patient arrived to the procedure lab. The risks and benefits of the procedure as well as a full d escription of our services here and current unavailability of surgical backup were fully explained to the patient and/or their significant other prior to the catheterization. The Timeout was completed, verifying the correct patient and procedure. The patient's procedural site was prepped and draped in the usual fashion. Local anesthetic was given subcutaneously to right radial region with Lidocaine 2% . Local anesthetic was given subcutaneously to right radial region with Lidocaine 2%. Local anestheti c was given subcutaneously to right groin region with Lidocaine 2%. Using a modified Seldinger techni que, arterial access was obtained via the right radial artery, a 6Fr sheath was inserted., arterial a ccess was obtained via the right femoral artery, with Micropuncture set, arterial access was obtained via the right femoral artery, a 4Fr sheath was inserted Venous access was obtained via the right brachiocephalic vein, a 7Fr sheath was inserted. A 7Fr thermal dilution catheter was insert ed and right heart pressures were recorded, it was then advanced to PA position for cardiac outputs. Thermal dilution cardiac outputs were then recorded. O2 saturations were then obtained. Left Ventricu lography was performed in KULKARNI projection using a 5 Fr. Pigtail catheter, unable to cross. Left Flores ry Artery selective angiography was performed in multiple views using a 5 Fr. JR 4 catheter, unable t o advance. Left Coronary Artery selective angiography was performed in multiple views using a 4 Fr. J R4 catheter, unable to advance. Right Coronary Artery selective angiography was then performed in mul tiple views using a 4 Fr. JR4 catheter. Left Coronary Artery selective angiography was performed in m ultiple views using a 4 Fr. JL4 catheter. Left Coronary Artery selective angiography was performed in multiple views using a 6 Fr. JL4 catheter. Left Ventriculography was performed in KULKARNI projection using a 5 Fr. Pigtail catheter. LV to AO pullback pressures were then recorded. Simultaneo us pressures were then recorded. The Thermal dilution catheter was then removed.Contrast was injected through the sheath and the Right Iliac and Femoral artery were assessed for possible closure device. The arterial sheath was pulled and a TR Band was applied for hemostasis. 7cc of air. The arterial she ath was pulled and a Perclose closure device was deployed for hemostasis. The venous sheath was then pulled and manual compression applied until hemostasis achieved CORONARY ANGIOGRAPHY DOMINANCE: Right Dominant LEFT HEART ASSESSMENT Left Ventricular Ejection Fraction: by LV Gram 40 % Global Hypokinesis - Mild Elevated Left Ventricular End Diastolic Pressure LVEDP: 21 mmHg RIGHT HEART ASSESSMENT Thermal CO: 7.45 Thermal CI: 2.6 Tiffanie CO: 5.29 Tiffanie CI: 1.85 PW: 15 10 PA: 31/18 24 RV: 30/4 8 RA: 8/8 7 PVR: 150 SVR: 526 Right Heart pressures - borderline to mildy elevated RVSP Pulmonary Hypertension: borderline to mildy elevated PASP Intracardiac shunting: None LEFT MAIN: Angiographically normal LEFT ANTERIOR DESCENDING ARTERY: PROX LAD: smooth: 25 % Stenosis CIRCUMFLEX ARTERY: Angiographically normal RIGHT CORONARY ARTERY: MID RCA: smooth: 50 % Stenosis AORTIC ROOT: Angiographically normal COMPLICATIONS No Complications PROCEDURE MEDICATIONS Fentanyl 50 mcg IV Versed 1 mg IV Fentanyl 50 mcg IV Fentanyl 25 mcg IV Heparin diluted in 23cc Heparinized saline. Patient given 10cc IA of this solution. 11/04/2020 09:30:5 9 Heparin diluted in 23cc Heparinized saline. Patient given 10cc IA of this solution. 11/04/2020 09:30:5 9 Verapamil 2.5mg, Ntg 100mcgs, 2000 units of Heparin diluted in 23cc Heparinized saline. Patient give n 10cc IA of this solution. 11/04/2020 09:30:59 IV Bolus: .9 NaCl 250 ml total 11/04/2020 13:50:38 SUMMARY OF HEMODYNAMIC DATA Time AIR REST ECG 08:14:49 RA 8/8 (7) SV 09:36:50 RV 30/4, 8 09:37:18 PW 12/08 (10) PV 09:37:51 PA /18 (24) PA 09:38:28 AO 73/51 (56) SA 09:58:43 AO 84/67 (74) 10:43:49 AO 97/67 (80) 10:51:02 LV 106/-7, 20 10:56:36 PW 20/17 (9) 10:56:36 LV 111/-5, 21 10:56:43 PW /18 (18) 10:56:43 LV 105/5, 23 10:59:06 LV 99/0, 20 10:59:12 LVp 101/5, 13 11:01:04 AOp 99/55 (71) 11:01:09 Type SV CO (l/m) CI (l/m/ HR Time AIR REST Thermal 225.80 7.45 2.60 33 08:14:49 Tiffanie 160.30 5.29 1.85 33 08:14:49 Label % O2 Pres/Loc Time AIR REST SVC 67 11:13:46 RA 60 SV 11:13:53 PA 61 PA 11:14:04 AO 97 PV 11:14:09 Signed By Nick Davidson MD On 11/04/2020 20:29:21 Nick Davidson MD
== END 2020-11-04 14:40 | disposition home or self-care (01) ==
LOC: CLSP 07:43
PROVIDERS: Physician Assistant Medical; PCP Family Medicine; Referring Provider Internal Medicine Cardiovascular Disease; Visit Provider Internal Medicine Cardiovascular Disease
DX: I42.2 Other hypertrophic cardiomyopathy (principal); I42.8 Other cardiomyopathies; R06.02 Shortness of breath; I48.92 Unspecified atrial flutter; I50.9 Heart failure, unspecified; I11.0 Hypertensive heart disease with heart failure; I95.9 Hypotension, unspecified; M79.89 Other specified soft tissue disorders; R42 Dizziness and giddiness; I48.91 Unspecified atrial fibrillation; Z79.899 Other long term (current) drug therapy; Z79.82 Long term (current) use of aspirin; G47.33 Obstructive sleep apnea (adult) (pediatric); Z86.718 Personal history of other venous thrombosis and embolism; E66.01 Morbid (severe) obesity due to excess calories; Z68.43 Body mass index [BMI] 50.0-59.9, adult
CPT/HCPCS: 36415; 80048; 82803; 82962; 93460; 99152; 99153; J7040; Q9967; C1751; C1760; C1769; C1894

== ENCOUNTER → 2020-11-13 07:58 | Outpatient (CLI) | payer OTHER, SELFPAY ==
[2020-10-13 08:42] VITALS: BMI 53.9
[2020-11-13 10:35] LABS: Anion Gap 8 (5-15); BUN 11 mg/dL (7-18); Calcium,Total 9.4 mg/dL (8.5-10.1); Chloride 98 mmol/L (98-107); Creatinine, Serum 0.85 mg/dL (0.70-1.30); EST Glomerular Filtration Rate 102 mL/min (>60); Est Glom Filt Rate - Afr Amer 123 mL/min (>60); Glucose 142 mg/dL (74-106); Potassium 3.7 mmol/L (3.5-5.1); Sodium Level 134 mmol/L (136-145)
[2020-11-13 10:53] LABS: Digoxin Level 0.59 ng/mL (0.80-2.00)
== END ==
PROVIDERS: PCP Family Medicine; Referring Provider Internal Medicine Cardiovascular Disease; Visit Provider Internal Medicine Cardiovascular Disease
DX: I42.2 Other hypertrophic cardiomyopathy (principal); I48.91 Unspecified atrial fibrillation; I42.9 Cardiomyopathy, unspecified
CPT/HCPCS: 36415; 80048; 80162

== ENCOUNTER 2020-12-03 13:23 | Outpatient (RCR) | payer OTHER, SELFPAY ==
[2020-11-28 13:55] VITALS: BMI 53.0
== END 2021-02-03 23:59 ==
LOC: IMMUN 13:23
PROVIDERS: PCP Family Medicine; Visit Provider Family Medicine
DX: Z23 Encounter for immunization (principal)
CPT/HCPCS: 0001A; 0002A; 91300

== ENCOUNTER → 2020-12-18 22:15 | Outpatient (CLI) | payer OTHER, SELFPAY ==
[2020-11-28 13:55] VITALS: BMI 53.0
== END ==
PROVIDERS: PCP Family Medicine; Visit Provider Physician Assistant Medical
DX: G47.33 Obstructive sleep apnea (adult) (pediatric) (principal)
CPT/HCPCS: 95811

== ENCOUNTER → 2020-12-29 12:50 | Outpatient (CLI) | payer OTHER, SELFPAY ==
[2020-11-28 13:55] VITALS: BMI 53.0
== END ==
PROVIDERS: PCP Family Medicine; Visit Provider Nurse Practitioner Acute Care
DX: Z46.89 Encounter for fitting and adjustment of other specified devices (principal)

== ENCOUNTER → 2021-03-03 11:30 | Outpatient (CLI) | payer OTHER, SELFPAY ==
[2021-03-03 10:27] VITALS: BMI 56.1
[2021-03-03 13:30] LABS: Hematocrit 43.2 % (40-54); Hemoglobin 14.8 g/dL (13.0-16.5); Mean Corp Hgb Conc 34.3 g/dL (32-36); Mean Corpuscular Hgb 31.9 pg (27.0-32.0); Mean Corpuscular Volume 93.1 fL (80-94); Mean Platelet Vol. 10.8 fl (6.2-12.0); Platelet Count 173 K/mm3 (150-450); RBC Distribution Width CV 12.5 % (11.6-14.6); RBC Distribution Width SD 43.3 fl (35.1-43.9); Red Blood Count 4.64 M/mm3 (4.6-6.2); White Blood Count 6.5 K/mm3 (4.4-11.0)
[2021-03-03 14:03] LABS: ALB/GLOB Ratio 0.9 RATIO (0.9-2.4); AST(SGOT) 29 U/L (15-37); Alanine Aminotransfer ALT/SGPT 41 U/L (16-61); Albumin, Serum 3.2 g/dL (3.2-5.0); Alkaline Phosphatase 80 U/L (45-117); Anion Gap 9 (5-15); BUN 20 mg/dL (7-18); BUN/Creat Ratio 19.8 RATIO (10-20); Chloride 99 mmol/L (98-107); Creatinine, Serum 1.01 mg/dL (0.70-1.30); EST Glomerular Filtration Rate 83 mL/min (>60); Est Glom Filt Rate - Afr Amer 101 mL/min (>60); Globulin 3.6 g/dL (2.2-4.2); Glucose 195 mg/dL (74-106); Magnesium 2.2 mg/dL (1.6-2.6); Potassium 3.5 mmol/L (3.5-5.1); Protein, Total 6.8 g/dL (6.4-8.2); Sodium Level 137 mmol/L (136-145); Thyroid Stim Hormone (TSH) 0.61 uIU/mL (0.358-3.74)
[2021-03-03 14:06] LABS: BNP,B-Type NATRIURETIC PEPTIDE 69.9 pg/mL (0-100)
[2021-03-05 15:42] LABS: Free T3 3.3 pg/mL (2.18-3.98); T4 Free Direct 1.08 ng/dL (0.76-1.46)
== END ==
PROVIDERS: PCP Family Medicine; Referring Provider Physician Assistant Medical; Visit Provider Physician Assistant Medical
DX: K62.5 Hemorrhage of anus and rectum (principal); R53.83 Other fatigue; M25.50 Pain in unspecified joint; M79.10 Myalgia, unspecified site; R53.1 Weakness; I48.0 Paroxysmal atrial fibrillation
CPT/HCPCS: 36415; 80053; 83735; 83880; 84439; 84443; 84481; 85027; 86140

== ENCOUNTER → 2021-03-20 13:28 | Outpatient (CLI) | payer OTHER, SELFPAY ==
[2021-03-03 10:27] VITALS: BMI 56.1
[2021-03-20 15:17] LABS: Erythrocyte Sedimentation Rate 27 mm/hr (0-20)
[2021-03-20 15:18] LABS: Vitamin D,25 Hydroxy 24.7 ng/mL
[2021-03-23 15:50] LABS: ANTINUCLEAR ANTIBODIES DIRECT Negative (Negative)
== END ==
PROVIDERS: PCP Family Medicine; Referring Provider Family Medicine; Visit Provider Family Medicine
DX: R53.83 Other fatigue (principal); M25.50 Pain in unspecified joint
CPT/HCPCS: 36415; 82140; 82306; 85652; 86038; 86140; 86225; 86235

== ENCOUNTER 2021-11-10 07:42 | Outpatient (CLI) | payer OTHER, SELFPAY ==
[2021-11-10 10:23] LABS: Hemoglobin A1c 5.6 % (3.8-5.6)
== END 2021-11-10 23:59 | disposition home or self-care (01) ==
LOC: MTLAB 07:44
PROVIDERS: PCP Family Medicine; Referring Provider Family Medicine; Visit Provider Family Medicine
DX: R73.01 Impaired fasting glucose (principal); R06.00 Dyspnea, unspecified; R05.9 Cough, unspecified; R06.02 Shortness of breath; M79.604 Pain in right leg; M79.605 Pain in left leg; M54.9 Dorsalgia, unspecified
CPT/HCPCS: 36415; 83036

== ENCOUNTER 2021-11-27 13:48 | Outpatient (RCR) | payer OTHER, SELFPAY ==
--- NOTE | 2021-11-27 16:14 | HP.PTEVAL_ITS ---
Patient's Visit Information ILA RICO is a 51 year old M referred to Physical Therapy by Dr. Anna Lange DO with a diagnosis of WEAKNESS ,PAIN IN RIGHT LEG,PAIN IN LEFT LEG ,DDD. Date of Evaluation: 11/27/21 Physical Therapist: Kennedy Peace, PT, Cert MDT, OCS - Visit Plan Frequency: 2x /Week Duration: 4 Weeks Plan: PT INTERVETIONS LE FLEXABLITY,DLS ABD/BACK ,BLE STRENGTHENING ,BALANCE PROGRAM AND FUNCTIONAL STRENGTHENING - Subjective This 51 y/o male presents to physical therapy for LBP and weakness . Patient has had back pain for several years and has h/o neuropathy many years and with ankle weakness and the weakness progressively worsen in legs past several months. Patient feels as though ankle gives way. Patient did have Covid in 2019. Patient was having BP issues fluctuating low. Thought also problems thus did cather ization which was negative for blockage. Patient has had h/o back issues many years ago. Aggravating factors sitting, walking/standing with difficulty ,Pain worsens with sit-stand from chair with hamstring . Alleviating factors rest. Seen DR recommended PT x-rays DDD and nerve conduction testing. Patient uses tens at home. Patient main issue is unsteady on feet. Patient has difficulty with ADLS and housework tasks. Difficulty with stairs. Walking on uneven ground. Patient plans to have ENG testing. SOCIAL: . VOCATION: [employer] - Pain Bilateral Back Pain Intensity (Out of 10): 5 Pain Intensity Range: 10 - Objective POSTURE: mild forward posture. GAIT: ambulates with straight gait with cane unsteady gait slow aiden. NEURO: c/o paresthesia/tingling in feet,L3-4,L4-5,L5-S1 1/3 ,light touch feet diminished. SYMMTRIES: align. MMT (peak force) : quads R 39.7, L 50 , hamstrings R 29.8 ,L 33.8 ,hip flexion 20.8 R ,L 24.1 R ,ANKLE 4/5. FLEXABLITY: hamstrings mod /severe tight. LUMBAR ROM: flexion mod loss ,extension mod loss ,side glides mod loss - Special Tests L/S Slump test left side: Negative L/S Slump test right side: Negative L/S Left Straight Leg Raise: Negative L/S Right Straight Leg Raise: Negative - Balance/Special Test Scores CATSIB Score (Max score 120 seconds): 70 Lower Extremity Functional Score: 26 - Goals Goal 1:: I with HEP for LUMBAR Goal Time Frame: 4-6 Weeks Goal 2:: Patient to increase strength by 5-10 peak force in BLE to improve gait Goal Time Frame: 4-6 Weeks Goal 3:: Patient to improve CATSIB by 5-10 points to improve balance Goal Time Frame: 4-6 Weeks Goal 4:: Patient to improve LFES score by 10 points to improve gait Goal Time Frame: 4-6 Weeks Goal 5:: Patient to improve 50% improvement with improved function and decrease back pain. Goal Time Frame: 4-6 Weeks - Rehabilitation Potential Physical Therapy Diagnosis: This patient has bilateral lower leg weakness along with back pain and balance issues walking on uneven surfaces and needing a cane for gait thus will need skilled PT Rehabilitation Potential: Good - Anticipated Interventions Patient/Client Instruction: Educate patient on: Condition, Plan of Care For the Purpose of:: To decrease pain, To improve muscle performance and motor function, To improve ability to perform ADL's, To increase tolerance to activity/condition/position, To improve ability of physical actions for home/community/work/leisure, To improve health of tissue, To decrease soft tissue restriction, To increase flexibility/ROM, To improve endurance, To improve balance Therapeutic Exercise to Include: Strength training, Power training, Endurance training, Balance training, Postural training, Flexibilty training, Dynamic Lumbar Stabilization Comment: BLE For the Purpose of:: To decrease pain, To increase ROM, To increase oxygenation perfusion, To improve ability to perform ADL's, To increase tolerance to activity/condition/position, To improve performance and independence with ADL's, To improve ability of physical actions for home/community/work/leisure, To improve health of tissue, To decrease soft tissue restriction, To increase flexibility/ROM Thank you for the opportunity to evaluate your patient. For Medicare and Medicare HMO plans, please review the plan of care and approve it. It will need to be FAXED BACK to us at [phone] for Medicare purposes. For Medicare only, by signing this I certify the plan of care. Please let me know if there are questions or concerns regarding this plan of care. Physician Signature: Date:
--- NOTE | 2022-06-02 09:20 | HP.PT.NRP ---
ILA RICO was seen in my office for initial evaluation on 11/27/21. The following Plan of Care was established for this patient: Initial Frequency: 2x /Week Initial Duration: 4 Weeks Patient/Client Instruction: Educate patient on: Condition, Plan of Care For the Purpose of:: To decrease pain, To improve muscle performance and motor function, To improve ability to perform ADL's, To increase tolerance to activity/condition/position, To improve ability of physical actions for home/community/work/leisure, To improve health of tissue, To decrease soft tissue restriction, To increase flexibility/ROM, To improve endurance, To improve balance Therapeutic Exercise to Include: Strength training, Power training, Endurance training, Balance training, Postural training, Flexibilty training, Dynamic Lumbar Stabilization For the Purpose of:: To decrease pain, To increase ROM, To increase oxygenation perfusion, To improve ability to perform ADL's, To increase tolerance to activity/condition/position, To improve performance and independence with ADL's, To improve ability of physical actions for home/community/work/leisure, To improve health of tissue, To decrease soft tissue restriction, To increase flexibility/ROM This patient was last seen in our office . Pertinent comments regarding their Physical therapy will appear below: Patient was seen for PT evaluation for HEP At this point I will be discontinuing this patient from physical therapy. I would be happy to see this patient again in the future if found appropriate by the physician. Thank you! Kennedy Peace, PT, Cert MDT, OCS Balance/Gait/Functional tests - Balance/Special Test Scores CATSIB Score (Max score 120 seconds): 70 Lower Extremity Functional Score: 26
== END 2021-11-27 19:00 | disposition home or self-care (01) ==
LOC: PT 13:48
PROVIDERS: PCP Family Medicine; Referring Provider Family Medicine; Visit Provider Family Medicine
DX: M79.604 Pain in right leg (principal); M79.605 Pain in left leg; M51.36 Other intervertebral disc degeneration, lumbar region; R53.1 Weakness
CPT/HCPCS: 97110; 97162

== ENCOUNTER → 2021-12-28 | Outpatient (CLI) | payer OTHER, SELFPAY ==
--- NOTE | 2021-12-28 09:56 | NEURO ---
NCS and/or EMG Patient Report Ordering Doctor: nAna Lange DATE OF SERVICE: 12/28/21 Indication: Bilateral lower extremity numbness. Toes and soles of the feet have been numb for years, but recently involving the ankles and lower legs. Evaluate for peripheral nerve injury. Findings: Nerve conduction studies were performed in the right and left lower extremities. The right peroneal motor study recording the extensor digitorum brevis showed a mildly reduced amplitude, normal distal latency and borderline conduction velocity. No conduction block or focal slowing was present across the fibular neck. The right peroneal motor study recording the tibialis anterior showed a normal amplitude, normal distal latency and normal conduction velocity. No conduction block or focal slowing was present across the fibular neck.The right tibial motor study recording the abductor hallucis brevis showed a borderline amplitude, normal distal latency and slowed conduction velocity. Right sural sensory response was absent. Right superficial peroneal sensory response was absent. The left peroneal motor study recording the extensor digitorum brevis showed a borderline amplitude, normal distal latency and slowed conduction velocity. No conduction block or focal slowing was present across the fibular neck. The left tibial motor study recording the abductor hallucis brevis showed a borderline amplitude, normal distal latency and slowed conduction velocity. Left sural sensory response was absent. Left superficial peroneal sensory response was absent. Limited needle EMG of the left lower extremity muscles was performed. Due to the patient being on therapeutic anticoagulation, certain muscles, including the lumbar paraspinal were not sampled. Increased insertional activity and sparse fibrillations were seen in the most distal muscles. Motor units in the extensor hallucis longus were polyphasic. The other sampled motor unit morphology, activation and recruitment patterns were normal. Impression: This is an abnormal, but limited (see above) study. There is electrophysiologic evidence of a length-dependent, sensorimotor, axonal, peripheral polyneuropathy in the bilateral lower extremities. A concurrent lumbosacral radiculopathy cannot be excluded by this examination. If clinically suspected, a repeat evaluation for radiculopathy can be considered off of anticoagulants. Clovis Alvarez D.O. Multi Select Codes Neurology Neurology Interp Codes: 97456-43 Musc tst done w/nerv tst hart (interp) and 77686-40 Nrv cndj test 9-10 studies (interp)
== END | disposition home or self-care (01) ==
LOC: PSN 08:24
PROVIDERS: PCP Family Medicine; Referring Provider Family Medicine; Visit Provider Family Medicine
DX: M79.604 Pain in right leg (principal); M79.605 Pain in left leg; R29.898 Other symptoms and signs involving the musculoskeletal system; R20.0 Anesthesia of skin
CPT/HCPCS: 95885; 95911

== ENCOUNTER → 2022-04-06 | Outpatient (CLI) | payer OTHER, SELFPAY ==
[2022-04-06 15:18] LABS: Hemoglobin 16.6 g/dL (13.0-16.5); Mean Corp Hgb Conc 33.2 g/dL (32-36); Mean Corpuscular Hgb 31.3 pg (27.0-32.0); Mean Corpuscular Volume 94.3 fL (80-94); Mean Platelet Vol. 10.9 fl (6.2-12.0); Platelet Count 160 K/mm3 (150-450); RBC Distribution Width CV 16.1 % (11.6-14.6); RBC Distribution Width SD 55.8 fl (35.1-43.9); White Blood Count 7.2 K/mm3 (4.4-11.0)
[2022-04-06 15:32] LABS: Vitamin B12 1259 pg/mL (211-911)
[2022-04-06 16:25] LABS: AST(SGOT) 25 U/L (15-37); Alanine Aminotransfer ALT/SGPT 28 U/L (16-61); Albumin, Serum 3.5 g/dL (3.2-5.0); Alkaline Phosphatase 84 U/L (45-117); Anion Gap 8 (5-15); BUN 16 mg/dL (7-18); BUN/Creat Ratio 20.8 RATIO (10-20); Calcium,Total 8.8 mg/dL (8.5-10.1); Chloride 106 mmol/L (98-107); Creatinine, Serum 0.77 mg/dL (0.70-1.30); EST Glomerular Filtration Rate 114 mL/min (>60); Est Glom Filt Rate - Afr Amer 138 mL/min (>60); Globulin 3.5 g/dL (2.2-4.2); Glucose 116 mg/dL (74-106); Potassium 4.3 mmol/L (3.5-5.1); Sodium Level 139 mmol/L (136-145); Thyroid Stim Hormone (TSH) 0.61 uIU/mL (0.358-3.74)
[2022-04-06 17:56] LABS: Hemoglobin A1c 5.8 % (3.8-5.6)
[2022-04-10 00:06] LABS: Free Kappa Light Chains 12.6 mg/L (3.3-19.4); Free Lambda Light Chains 9.4 mg/L (5.7-26.3)
[2022-04-10 15:40] LABS: Vitamin B1, Thiamine 190.6 nmol/L (66.5-200.0)
== END | disposition home or self-care (01) ==
LOC: MTLAB 11:37
PROVIDERS: PCP Family Medicine; Referring Provider Psychiatry & Neurology Neurology; Visit Provider Psychiatry & Neurology Neurology
DX: G62.9 Polyneuropathy, unspecified (principal); R73.9 Hyperglycemia, unspecified
CPT/HCPCS: 36415; 80053; 82140; 82607; 82746; 83036; 83883; 84425; 84443; 85027

== ENCOUNTER → 2022-05-21 | Outpatient (CLI) | payer OTHER, SELFPAY ==
[2022-05-21 10:06] LABS: Absolute Lymphocyte Count 1.53 X10^3/uL (0.83-4.51); Absolute Neutrophil Count 4.4 X10^3/uL (2.0-7.7); Basophil# 0.04 X10^3/uL; Basophil% 0.6 % (0-1); Eosinophil# 0.14 X10^3/uL; Hemoglobin 16.4 g/dL (13.0-16.5); Lymphocyte # 1.53 X10^3/ul (0.83-4.51); Lymphocyte % 22.4 % (19-41); Mean Corp Hgb Conc 32.8 g/dL (32-36); Mean Corpuscular Hgb 32.2 pg (27.0-32.0); Mean Platelet Vol. 10.7 fl (6.2-12.0); Monocyte# 0.67 X10^3/uL; Monocyte% 9.8 % (0-10); NRBC Flagged by Analyzer 0 % (0-5); Neutrophil # 4.42 X10^3/uL (2.7-7.7); Neutrophil % 64.6 % (47-70); Platelet Count 175 K/mm3 (150-450); RBC Distribution Width CV 13.9 % (11.6-14.6); RBC Distribution Width SD 50.4 fl (35.1-43.9); White Blood Count 6.8 K/mm3 (4.4-11.0)
[2022-05-21 10:19] LABS: ALB/GLOB Ratio 1.1 RATIO (0.9-2.4); AST(SGOT) 32 U/L (15-37); Alanine Aminotransfer ALT/SGPT 37 U/L (16-61); Albumin, Serum 3.6 g/dL (3.2-5.0); Alkaline Phosphatase 95 U/L (45-117); Anion Gap 10 (5-15); BUN 9 mg/dL (7-18); Calcium,Total 9.4 mg/dL (8.5-10.1); Chloride 100 mmol/L (98-107); Creatinine, Serum 0.82 mg/dL (0.70-1.30); EST Glomerular Filtration Rate 106 mL/min (>60); Est Glom Filt Rate - Afr Amer 128 mL/min (>60); Globulin 3.4 g/dL (2.2-4.2); Glucose 142 mg/dL (74-106); Potassium 4.5 mmol/L (3.5-5.1); Sodium Level 136 mmol/L (136-145)
== END | disposition home or self-care (01) ==
LOC: MTLAB 08:42
PROVIDERS: PCP Family Medicine; Referring Provider Family Medicine; Visit Provider Family Medicine
DX: Z51.81 Encounter for therapeutic drug level monitoring (principal)
CPT/HCPCS: 36415; 80053; 85025

== ENCOUNTER → 2022-06-03 | Outpatient (CLI) | payer OTHER, SELFPAY | END | disposition home or self-care (01) | LOC: PSN 06-07 12:19 | PROVIDERS: PCP Family Medicine; Referring Provider Internal Medicine Cardiovascular Disease; Visit Provider Internal Medicine Cardiovascular Disease | DX: I48.0 Paroxysmal atrial fibrillation (principal); I50.9 Heart failure, unspecified; I47.1 Supraventricular tachycardia | CPT/HCPCS: 93225; 93226 ==

== ENCOUNTER → 2023-05-31 | Outpatient (CLI) | payer BC, SELFPAY ==
[2023-05-31 17:51] LABS: Absolute Neutrophil Count 5.9 X10^3/uL (2.0-7.7); Basophil# 0.05 X10^3/uL; Basophil% 0.6 % (0-1); Eosinophils% 1.2 % (0-5); Hematocrit 45.6 % (40-54); Hemoglobin 14.7 g/dL (13.0-16.5); Lymphocyte % 18.9 % (19-41); Mean Corp Hgb Conc 32.2 g/dL (32-36); Mean Corpuscular Hgb 29.9 pg (27.0-32.0); Mean Corpuscular Volume 92.7 fL (80-94); Mean Platelet Vol. 11.3 fl (6.2-12.0); Monocyte# 0.76 X10^3/uL; NRBC Flagged by Analyzer 0 % (0-5); Neutrophil # 5.91 X10^3/uL (2.7-7.7); Neutrophil % 69.9 % (47-70); Platelet Count 182 K/mm3 (150-450); RBC Distribution Width CV 15.1 % (11.6-14.6); RBC Distribution Width SD 50.4 fl (35.1-43.9); Red Blood Count 4.92 M/mm3 (4.6-6.2); White Blood Count 8.5 K/mm3 (4.4-11.0)
[2023-05-31 18:17] LABS: Hemoglobin A1c 6.3 % (3.8-5.6)
[2023-05-31 18:23] LABS: Vitamin D,25 Hydroxy 71.3 ng/mL
[2023-05-31 18:32] LABS: Erythrocyte Sedimentation Rate 37 mm/hr (0-20)
[2023-05-31 18:48] LABS: ALB/GLOB Ratio 1.1 RATIO (0.9-2.4); AST(SGOT) 26 U/L (15-37); Alanine Aminotransfer ALT/SGPT 29 U/L (16-61); Albumin, Serum 4.1 g/dL (3.2-5.0); Alkaline Phosphatase 85 U/L (45-117); Anion Gap 10 (5-15); BUN 25 mg/dL (7-18); BUN/Creat Ratio 23.8 RATIO (10-20); Calcium,Total 9.8 mg/dL (8.5-10.1); Chloride 101 mmol/L (98-107); Creatinine, Serum 1.05 mg/dL (0.70-1.30); EST Glomerular Filtration Rate 79 mL/min (>60); Est Glom Filt Rate - Afr Amer 96 mL/min (>60); Free T3 3.4 pg/mL (2.18-3.98); Globulin 3.8 g/dL (2.2-4.2); Glucose 131 mg/dL (74-106); Potassium 3.1 mmol/L (3.5-5.1); Protein, Total 7.9 g/dL (6.4-8.2); Sodium Level 139 mmol/L (136-145); T4 Free Direct 1.33 ng/dL (0.76-1.46); Thyroid Stim Hormone (TSH) 1.42 uIU/mL (0.358-3.74)
[2023-06-02 16:09] LABS: Thyroglobulin Antibody < 1.0 IU/mL (0.0-0.9); Thyroid Peroxidase AB < 9 IU/mL (0-34)
== END | disposition home or self-care (01) ==
PROVIDERS: PCP Family Medicine; Referring Provider Family Medicine; Visit Provider Family Medicine
DX: E03.9 Hypothyroidism, unspecified (principal); I48.91 Unspecified atrial fibrillation; E55.9 Vitamin D deficiency, unspecified; M25.50 Pain in unspecified joint; M79.10 Myalgia, unspecified site; R73.01 Impaired fasting glucose; Z51.81 Encounter for therapeutic drug level monitoring
CPT/HCPCS: 36415; 80053; 82140; 82306; 83036; 84439; 84443; 84481; 85025; 85652; 86140; 86376; 86800

== ENCOUNTER → 2024-02-21 | Outpatient (CLI) | payer BC, SELFPAY ==
--- NOTE | 2024-02-21 10:50 | RAD_ITS ---
STUDY: X-RAY - PELVIS AND LEFT HIP REASON FOR EXAM: Male, 53 years old. Hip pain. TECHNIQUE: 3 views of the pelvis and hip on 4 images. COMPARISON: None. FINDINGS: There is a non-specific bowel gas pattern. Vascular calcification. Phleboliths. Moderate arthrosis of the sacroiliac joints. Normal bilateral superior and inferior pubic rami. Moderate arthrosis of the symphysis pubis. Normal bilateral ischial tuberosities. Mild arthrosis of the right hip. Moderate arthrosis of the left hip with subchondral cyst formation, subchondral sclerosis and osteophyte formation. RAD/HIP, UNI W/ Pelvis 2-3 Views IMPRESSION: Osteoarthrosis of the sacroiliac joints and symphysis pubis. Mild arthrosis of the right hip. Moderate arthrosis of the left hip as described. No acute abnormality. Electronically Signed: Chapin Camargo MD at 11:44 EDT ,
== END | disposition home or self-care (01) ==
LOC: MTRAD 10:39
PROVIDERS: PCP Family Medicine; Referring Provider Family Medicine; Visit Provider Family Medicine
DX: M25.552 Pain in left hip (principal)
CPT/HCPCS: 73502

== ENCOUNTER → 2024-03-27 | Outpatient (CLI) | payer BC, SELFPAY ==
[2024-03-27 12:40] LABS: Erythrocyte Sedimentation Rate 12 mm/hr (0-20)
[2024-03-27 12:42] LABS: Absolute Lymphocyte Count 1.14 X10^3/uL (0.83-4.51); Absolute Neutrophil Count 6.3 X10^3/uL (2.0-7.7); Basophil# 0.03 X10^3/uL; Basophil% 0.4 % (0-1); Eosinophil# 0.13 X10^3/uL; Eosinophils% 1.5 % (0-5); Hemoglobin 15.1 g/dL (13.0-16.5); Lymphocyte # 1.14 X10^3/ul (0.83-4.51); Lymphocyte % 13.5 % (19-41); Mean Corp Hgb Conc 32.1 g/dL (32-36); Mean Corpuscular Hgb 27.8 pg (27.0-32.0); Mean Corpuscular Volume 86.6 fL (80-94); Mean Platelet Vol. 11.1 fl (6.2-12.0); Monocyte# 0.76 X10^3/uL; NRBC Flagged by Analyzer 0 % (0-5); Neutrophil # 6.32 X10^3/uL (2.7-7.7); Platelet Count 229 K/mm3 (150-450); RBC Distribution Width CV 16.5 % (11.6-14.6); Red Blood Count 5.43 M/mm3 (4.6-6.2); White Blood Count 8.4 K/mm3 (4.4-11.0)
[2024-03-27 13:09] LABS: AST(SGOT) 37 U/L (15-37); Alanine Aminotransfer ALT/SGPT 28 U/L (16-61); Albumin, Serum 4.2 g/dL (3.2-5.0); Alkaline Phosphatase 168 U/L (45-117); Anion Gap 8 (5-15); BUN 51 mg/dL (7-18); BUN/Creat Ratio 37.5 RATIO (10-20); Calcium,Total 10.4 mg/dL (8.5-10.1); Chloride 94 mmol/L (98-107); Cholesterol 147 mg/dL (200); Creatinine, Serum 1.36 mg/dL (0.70-1.30); EST Glomerular Filtration Rate 58 mL/min (>60); Est Glom Filt Rate - Afr Amer 71 mL/min (>60); Glucose 103 mg/dL (74-106); High Density Lipoprotein 46 mg/dL; Potassium 4.1 mmol/L (3.5-5.1); Protein, Total 8.2 g/dL (6.4-8.2); Sodium Level 133 mmol/L (136-145); Triglycerides 69 mg/dL; Very Low Density Lipoprotein 14 mg/dL (5-40)
[2024-03-27 13:53] LABS: Hemoglobin A1c 5.9 % (3.8-5.6)
== END | disposition home or self-care (01) ==
LOC: BFHLAB 08:39
PROVIDERS: PCP Family Medicine; Referring Provider Family Medicine; Visit Provider Family Medicine
DX: M25.50 Pain in unspecified joint (principal); E11.9 Type 2 diabetes mellitus without complications; E78.5 Hyperlipidemia, unspecified; Z51.81 Encounter for therapeutic drug level monitoring
CPT/HCPCS: 36415; 80053; 80061; 83036; 85025; 85652; 86140

== ENCOUNTER → 2024-04-13 | Outpatient (CLI) | payer BC, SELFPAY ==
[2024-04-13] MEDS: Lidocaine 2% (5ml sdv) 5 ML VIAL.MPF INFILT (08:53)
[2024-04-13] MEDS: Triamcinolone Acetonide 40 MG/ML Vial 60 MG INTRAARTIC (08:55)
[2024-04-13] MEDS: Lidocaine 1% (5 ml sdv) 5 ML Vial 2 ML INFILT (08:55)
--- NOTE | 2024-04-13 09:19 | PRO.PCM_ITS ---
Procedure Report Date of Procedure: 04/13/24 Assessment & Plan Assessment/Plan (1) Osteoarthritis of left hip: QUALIFIERS: Osteoarthritis type: unspecified Qualified Code(s): M16.12 - Unilateral primary osteoarthritis, left hip PLAN: PROCEDURE: Fluoroscopic Guided left hip injection ORDERING PROVIDER: Dr. Anna Lange INDICATION: Male, 53 years old. Left hip osteoarthritis. FLUOROSCOPY TIME (if supplied): 0 minutes/33 seconds. 13.2 mGy PROVIDER: DIA Webber PROCEDURE: CONSENT: The risks, benefits, and alternatives to the procedure were explained to the patient. The specific risks of bleeding, infection, and neurovascular injury were detailed and accepted. Witnessed informed consent was obtained. TECHNIQUE: The left hip access site was prepped and draped in sterile fashion. 2% Lidocaine was administered subcutaneously for local anesthesia. A 22-gauge spinal needle was positioned under radiographic fluoroscopic localization. A pproximately 2 cc of Isovue 300 instilled for localization purposes. Medication was then injected. MEDICATIONS: 60 mg of Kenalog and 2 ml of 1% lidocaine. The spinal needle was removed, and a dressing was applied. The patient tolerated the procedure well without any immediate complications. IMPRESSION: Successful fluoroscopic guided left hip injection. Procedures Radiology Radiology Xray Procedures: 64231 Inj Asp major Joint - Hip, Knee Multi Select Codes Radiology Rad Xray Procedures: 53174-50 Fluoroscopic guidance for needle placement
== END | disposition home or self-care (01) ==
LOC: RAD 08:21
PROVIDERS: PCP Family Medicine; Referring Provider Family Medicine; Visit Provider Family Medicine
DX: M16.12 Unilateral primary osteoarthritis, left hip (principal)
CPT/HCPCS: 20610; 77002

== ENCOUNTER → 2024-06-28 | Outpatient (CLI) | payer BC, SELFPAY ==
[2024-06-28 12:21] LABS: Erythrocyte Sedimentation Rate 13 mm/hr (0-20)
[2024-06-28 12:30] LABS: Absolute Lymphocyte Count 1.18 X10^3/uL (0.83-4.51); Absolute Neutrophil Count 5.6 X10^3/uL (2.0-7.7); Basophil# 0.04 X10^3/uL; Basophil% 0.5 % (0-1); Eosinophil# 0.14 X10^3/uL; Eosinophils% 1.8 % (0-5); Hematocrit 36.4 % (40-54); Hemoglobin 11.5 g/dL (13.0-16.5); Lymphocyte # 1.18 X10^3/ul (0.83-4.51); Lymphocyte % 15.3 % (19-41); Mean Corp Hgb Conc 31.6 g/dL (32-36); Mean Corpuscular Hgb 30.4 pg (27.0-32.0); Mean Corpuscular Volume 96.3 fL (80-94); Mean Platelet Vol. 9.9 fl (6.2-12.0); Monocyte# 0.67 X10^3/uL; Monocyte% 8.7 % (0-10); NRBC Flagged by Analyzer 0 % (0-5); Neutrophil # 5.63 X10^3/uL (2.7-7.7); Neutrophil % 73.1 % (47-70); Platelet Count 236 K/mm3 (150-450); RBC Distribution Width CV 16.2 % (11.6-14.6); RBC Distribution Width SD 57.4 fl (35.1-43.9); Red Blood Count 3.78 M/mm3 (4.6-6.2); White Blood Count 7.7 K/mm3 (4.4-11.0)
[2024-06-28 12:59] LABS: ALB/GLOB Ratio 1.2 RATIO (0.9-2.4); AST(SGOT) 18 U/L (15-37); Alanine Aminotransfer ALT/SGPT 19 U/L (16-61); Albumin, Serum 3.9 g/dL (3.2-5.0); Alkaline Phosphatase 123 U/L (45-117); Anion Gap 8 (5-15); BUN 48 mg/dL (7-18); CRP 8.73 mg/L (0.0-3.0); Calcium,Total 9.5 mg/dL (8.5-10.1); Chloride 94 mmol/L (98-107); Creatinine, Serum 1.37 mg/dL (0.70-1.30); EST Glomerular Filtration Rate 58 mL/min (>60); Est Glom Filt Rate - Afr Amer 70 mL/min (>60); Globulin 3.3 g/dL (2.2-4.2); Glucose 116 mg/dL (74-106); Potassium 3.5 mmol/L (3.5-5.1); Protein, Total 7.2 g/dL (6.4-8.2); Rheumatoid Factor < 10.0 IU/mL (<15); Sodium Level 131 mmol/L (136-145)
[2024-06-29 12:10] LABS: CCP IgG Antibodies 7 units (0-19)
[2024-06-29 13:08] LABS: ANTINUCLEAR ANTIBODIES DIRECT Negative (Negative)
== END | disposition home or self-care (01) ==
LOC: BFHLAB 10:12
PROVIDERS: PCP Family Medicine; Referring Provider Family Medicine; Visit Provider Family Medicine
DX: M25.50 Pain in unspecified joint (principal); M79.10 Myalgia, unspecified site; Z51.81 Encounter for therapeutic drug level monitoring
CPT/HCPCS: 36415; 80053; 85025; 85652; 86038; 86140; 86200; 86225; 86235; 86431

== ENCOUNTER 2024-08-01 12:13 | Emergency (ER) | payer BC, SELFPAY ==
[2024-08-01 12:13] VITALS: BP 155/89; PULSE 83; RESP 15; TEMP 36.4; O2SAT 99
--- NOTE | 2024-08-01 15:18 | EX.ED.DYSGE1 ---
HPI History of Present Illness Chief Complaint: Lower Extremity Injury Narrative Narrative: Chief complaint and HPI: Left hip pain. 53-year-old male with history of chronic left hip pain, arthritis, CHF, venous insufficiency, morbid obesity, paroxysmal atrial fibrillation on Eliquis presents for evaluation of left hip pain. Patient states that he has a previous history of left hip pain. He states he was diagnosed with arthritis in the hip and required steroid injection in the past. He states he received the injection in spring. Patient states that his pain has been controlled until recently. He states on Tuesday he developed pain in his left hip that is progressively worsening. He states he saw his PCP who scheduled him for outpatient steroid injection as well as wrote him for a narcotic which the patient has yet to cotton picker. Patient states that his pain has not improved which is why he presents today. He denies any recent fall or trauma. States he has difficulty ambulating secondary to the pain. Uses a cane. He denies any numbness or tingling other than his peripheral neuropathy. Denies any weakness. Denies urinary retention, stool or urinary incontinence, saddle anesthesia, recent invasive manipulation of the spine, intravenous drug use, or fever. Patient states that his PCP told him to present to get x-rays. Review of systems: See HPI Medications: As listed on the chart Allergies: As listed on the chart PFSH: Per chart Vital signs: As listed on the chart. Reviewed. Physical exam: Gen: A&O x3, NAD Head: Normocephalic, atraumatic Eyes: No sclera icterus, conjunctiva clear ENT: Moist mucous membranes Neck: Trachea midline, Full ROM CV: RRR, no murmurs, mild nonpitting peripheral edema Resp: Lungs CTA BL, no w/r/c GI: Morbid obesity, abd soft, non-distended, non-tender, no r/r/g Musc: Moves all extremities, no deformity, strength +5/5 in all extremities, left hip is nontender to palpation although patient endorses left hip pain with movement of the left lower extremity, patient has mild tenderness to palpation in the paraspinal musculature of the left lumbar spine and left gluteus/piriformis, no midline spinal tenderness, no bony step-offs, no signs of infection Skin: Warm, dry Neuro: Alert, oriented, grossly intact, sensation intact, no focal deficits Psych: Cooperative, appropriate mood and affect PFSH PFSH Medical History Pneumonia Neuropathy Hypertension Gallstones History of blood transfusion Bone fracture History of back problems Atrial fibrillation Nicotine dependence in remission Pulmonary embolism (2013) Paroxysmal atrial fibrillation Non-ischemic cardiomyopathy Nonobstructive atherosclerosis of coronary artery Weakness generalized COVID-19 (10/2019) Rectal bleeding Cellulitis of left lower extremity Morbid obesity Premature atrial contraction Essential hypertension Knee pain Anemia History of DVT (deep vein thrombosis) Paroxysmal SVT (supraventricular tachycardia) Chest pain Insomnia Obstructive sleep apnea Premature ventricular contractions Nicotine abuse Alcohol abuse Deep vein thrombosis, lower left extremity Home Medications ?Medication ?Instructions ?Recorded ?Last Taken ?Type multivitamin 1 ea PO DAILY 05/03/15 11/04/20 History omega-3 fatty acids 1,000 mg 1,000 mg PO DAILY 09/02/20 Unknown History capsule (Fish Oil Concentrate) magnesium oxide 400 mg (241.3 mg 400 mg PO DAILY #1 TAB 10/07/20 11/04/20 Rx magnesium) tablet melatonin 10 mg tablet 10 mg PO HS PRN 03/03/21 Unknown History potassium chloride 20 mEq 40 meq (2 x 20 mEq) PO DAILY #90 12/07/21 Unknown Rx tablet,extended release(part/cryst) tabs valsartan 40 mg tablet 20 mg PO DAILY 04/01/22 Unknown History mecobalamin (vitamin B12) 2,500 2,500 mcg PO DAILY 02/24/23 Unknown History mcg chewable tablet metolazone 5 mg tablet 5 mg PO DAILY 02/24/23 Unknown History niacin 500 mg tablet 500 mg PO DAILY 02/24/23 Unknown History pyridoxine (vitamin B6) 100 mg 100 mg PO DAILY 02/24/23 Unknown History tablet (Vitamin B-6) thiamine HCl (vitamin B1) 250 mg 250 mg PO DAILY 02/24/23 Unknown History tablet vitamin E (dl, acetate) 180 mg 180 mg PO DAILY 02/24/23 Unknown History (400 unit) capsule bumetanide 2 mg tablet 4 mg (2 x 2 mg) PO DAILY #180 tabs 02/28/23 Unknown Rx apixaban 5 mg tablet (Eliquis) 5 mg PO BID #60 tabs 04/23/24 Unknown Rx alpha lipoic acid 600 mg tablet 600 mg PO BID 07/12/24 Unknown History Allergy/AdvReac Type Severity Reaction Status Date / Time No Known Allergies Allergy Verified 08/01/24 12:13 Surgical History History of extraction of renal calculus History of left heart catheterization (LHC) (11/04/20) History of bronchoscopy History of tonsillectomy History of arthroscopic knee surgery Social History adopted: Yes Smoking Status: Current every day smoker tobacco type: cigarettes Tobacco: How many years used: 30 second hand exposure: No alcohol intake: current alcohol intake frequency: 0-2 drinks per day details: ATTEMPTED to quit 1 month ago substance use type: does not use caffeine: No what type of physical activity do you participate in: none sarah/taoism: None seatbelt use: always do you feel safe at home: Yes EXAM Physical Exam Const Vital Signs: 08/01/24 12:13 08/01/24 16:43 Temperature 97.5 F L 97.9 F Temperature Source Temporal Pulse Rate 83 72 Respiratory Rate 15 20 H Blood Pressure 155/89 H 158/72 H Blood Pressure Mean 111 100 Pulse Ox 99 98 Oxygen Delivery Method Room Air MDM MDM MDM Narrative Medical decision making narrative: 53-year-old male with history of chronic left hip pain, arthritis, CHF, venous insufficiency, morbid obesity, paroxysmal atrial fibrillation on Eliquis presents for evaluation of left hip pain. Onset of pain Tuesday and progressively worsening. Denies trauma or injury. See physical exam findings. Patient states he is scheduled for an outpatient steroid injection. This has resolved his pain in the past. His PCP wrote him for a necrotic prescription that he is scheduled to cotton picker today. Differential diagnosis includes but is not limited to arthritis, muscle strain/spasm, suspect less likely fracture. No emergent MRI is needed. Patient states that his PCP wanted x-rays performed due to his pain therefore x-rays of the hip and lumbar spine ordered. IM morphine, Valium given for pain. All plain films were interpreted by myself, ED physician as well as radiology. No fracture or dislocation. Per radiology, patient has spondylosis and multilevel facet arthropathy with probable spinal stenosis in the lumbar spine. CT or MRI for definitive evaluation. He has degenerative changes of both hips more severe on the left. On reevaluation, patient's pain is improved. Patient was able to ambulate with his cane to the bathroom without any difficulty. At this point in time, there is no emergent need for CT or MRI. Patient stable to discharge home. Follow-up with PCP. Patient was educated to cotton picker his narcotic prescription and confirmed understanding. Return precautions explained. Impression: 1. Acute on chronic left hip pain 2. Osteoarthritis of the bilateral hips 3. Spondylosis and multilevel facet arthropathy with probable spinal stenosis of the lumbar spine Radiography Diagnostic Testing: Clinical Impression(s) from Imaging Studies Hip/Pelvis X-Ray 08/01/24 15:40 IMPRESSION: Degenerative changes of both hips more severe on the left. No acute hip or pelvic fractures. Electronically Signed: Tito Flores MD at 16:22 EST , Lumbar Spine X-Ray 08/01/24 15:40 IMPRESSION: Spondylosis and multilevel facet arthropathy with probable spinal stenosis. CT or MRI would be useful for more definitive evaluation Electronically Signed: Tito Flores MD at 16:27 EST , Discharge Plan Triage Chief Complaint: Lower Extremity Injury ED Provider: Chico Delcid Dx/Rx/DC Orders Clinical Impression: Hip pain, left, Low back pain Instructions: Relieving Back Pain, Understanding the Pain Response, ED RICE Prescriptions: No Action omega-3 fatty acids [Fish Oil Concentrate] 1,000 mg capsule 1,000 mg PO DAILY melatonin 10 mg tablet 10 mg PO HS PRN valsartan 40 mg tablet 20 mg PO DAILY Patient Comments: TAKE 1/2 TABLET BY MOUTH ONCE DAILY metolazone 5 mg tablet 5 mg PO DAILY Patient Comments: TAKE 1 TABLET BY MOUTH EVERY DAY 30 TO 60 MINUTES PRIOR TO BUMETANIDE thiamine HCl (vitamin B1) 250 mg tablet 250 mg PO DAILY pyridoxine (vitamin B6) [Vitamin B-6] 100 mg tablet 100 mg PO DAILY mecobalamin (vitamin B12) 2,500 mcg tablet,chewable 2,500 mcg PO DAILY vitamin E (dl, acetate) 180 mg (400 unit) capsule 180 mg PO DAILY niacin 500 mg tablet 500 mg PO DAILY multivitamin 1 EACH tablet 1 ea PO DAILY magnesium oxide 400 mg (241.3 mg magnesium) tablet 400 mg PO DAILY Qty: 1 0RF potassium chloride 20 mEq tablet,ER particles/crystals 40 meq PO DAILY Qty: 90 11RF Rx Instructions: 2 tablets daily: may take additional if instructed bumetanide 2 mg tablet 4 mg PO DAILY Qty: 180 3RF Eliquis 5 mg tablet 5 mg PO BID Qty: 60 11RF Primary Care Provider: Anna Lange Referrals: Anna Lange DO [Primary Care Provider] - 3-5 Days Tanmay Santos MD [Med Staff - Active Staff] - 3-5 Days Activity Restrictions/Additional Instructions: Follow-up with your primary care physician. Okay for Tylenol. help desk support specialist your pain medicine prescription that was already prescribed you by your PCP. Return back to the ED if symptoms change or worsen. Follow-up with orthopedics. Print Language: Icelandic Disposition Disposition: Home, Self Care Discharge Date/Time: 08/01/24 16:46
[2024-08-01] MEDS: Morphine 4 MG/ML Syringe IM (15:30)
[2024-08-01] MEDS: diazePAM 5 MG Tablet PO (15:31)
--- NOTE | 2024-08-01 15:35 | ED.RN ---
PT STATES UNABLE TO AMBULATE, PT OBSERVED WALKING DOWN BACK HALLWAY TO BATHROOM WITH JUST ASSISTANCE OF HIS CANE
--- NOTE | 2024-08-01 15:40 | RAD_ITS ---
STUDY: X-RAY - LUMBAR SPINE REASON FOR EXAM: Male, 53 years old. pain TECHNIQUE: 3 view(s) of the lumbar spine were obtained. COMPARISON: November 10, 2021 FINDINGS: Normal lumbar lordosis. There is no substantial scoliosis. There is a normal alignment of the vertebrae. No evidence for acute fracture or subluxation.. Mild chronic wedging of superior endplate of L1 Joint spaces are well-maintained however there is multilevel endplate spurring There is facet arthropathy at L4-5 [L3-4, and L5-S1 creating spinal stenosis on the lateral projection. CT or MRI would be useful for further assessment The soft tissue structures are unremarkable. Findings are similar to that seen on prior study RAD/Lumbar Spine 2 or 3 Views IMPRESSION: Spondylosis and multilevel facet arthropathy with probable spinal stenosis. CT or MRI would be useful for more definitive evaluation Electronically Signed: Tito Flores MD at 16:27 EST ,
--- NOTE | 2024-08-01 15:40 | RAD_ITS ---
STUDY: X-RAY - PELVIS AND LEFT HIP REASON FOR EXAM: Male, 53 years old. pain TECHNIQUE: 4 views of the pelvis and hip. COMPARISON: None. FINDINGS: There is a non-specific bowel gas pattern. Normal visualized soft tissue structures. Normal bilateral iliac wings, sacroiliac joints and visualized sacrum. Normal bilateral superior and inferior pubic rami. Normal pubic symphysis. Normal bilateral ischial tuberosities. There is moderate narrowing of the right hip joint with subchondral sclerosis and more advanced disease of the left hip joint. . RAD/HIP, UNI W/ Pelvis 2-3 Views IMPRESSION: Degenerative changes of both hips more severe on the left. No acute hip or pelvic fractures. Electronically Signed: Tito Flores MD at 16:22 EST ,
[2024-08-01 16:43] VITALS: BP 158/72; PULSE 72; RESP 20; TEMP 36.6; O2SAT 98
== END 2024-08-01 16:46 | disposition home or self-care (01) ==
PROVIDERS: Emergency Provider Surgery; PCP Family Medicine; Visit Provider Surgery
DX: M25.552 Pain in left hip (principal); I11.0 Hypertensive heart disease with heart failure; I50.9 Heart failure, unspecified; I48.0 Paroxysmal atrial fibrillation; I42.8 Other cardiomyopathies; E66.01 Morbid (severe) obesity due to excess calories; M46.96 Unspecified inflammatory spondylopathy, lumbar region; M46.97 Unspecified inflammatory spondylopathy, lumbosacral region; M47.816 Spondylosis without myelopathy or radiculopathy, lumbar region; M47.817 Spondylosis without myelopathy or radiculopathy, lumbosacral region; I87.2 Venous insufficiency (chronic) (peripheral); M16.0 Bilateral primary osteoarthritis of hip; G89.29 Other chronic pain; G47.33 Obstructive sleep apnea (adult) (pediatric); F17.210 Nicotine dependence, cigarettes, uncomplicated; Z87.19 Personal history of other diseases of the digestive system; Z79.01 Long term (current) use of anticoagulants; Z79.899 Other long term (current) drug therapy; Z86.711 Personal history of pulmonary embolism; Z86.718 Personal history of other venous thrombosis and embolism
CPT/HCPCS: 72100; 73502; 96372; 99282

== ENCOUNTER → 2024-08-21 | Outpatient (CLI) | payer BC, SELFPAY ==
[2024-08-21] MEDS: Triamcinolone Acetonide 40 MG/ML Vial 60 MG INTRAARTIC (09:40)
[2024-08-21] MEDS: Lidocaine 1% (5 ml sdv) 5 ML Vial 2 ML INFILT (09:40)
[2024-08-21] MEDS: Lidocaine 2% (5ml sdv) 5 ML VIAL.MPF INFILT (09:40)
--- NOTE | 2024-08-21 11:42 | PCM.OPRPT ---
Problems Associated Problem List Diagnoses (1) Osteoarthritis of left hip: Multi Select Codes Radiology Rad Xray Procedures: 56438 Inj Asp major Joint - Hip, Knee and 23504-43 Fluoroscopic guidance for needle placement Operative Report (Standard) Operative Information Date of Procedure: 08/21/24 Pre-Operative Diagnosis: Left hip osteoarthritis Post-Operative Diagnosis: Left hip osteoarthritis Surgery/Procedure Performed: Fluoroscopic guided left hip injection production technologist: No Type of Anesthesia: Local Procedure Start Time: 09:30 Procedure Stop Time: 09:50 Select all DRAINS/GRAFTS/IMPLANTS that apply: None Estimated Blood Loss: minimal Specimen collected: No Description of surgery: PROCEDURE: Fluoroscopic Guided left hip injection ORDERING PROVIDER: Dr. Anna Gonzalez INDICATION: Male, 54 years old. Left hip osteoarthritis. PROVIDER: DIA Webber FLUOROSCOPY TIME (if supplied): 1 minutes/2 seconds. 10.8 mGy CONSENT: The risks, benefits, and alternatives to the procedure were explained to the patient. The specific risks of bleeding, infection, and neurovascular injury were detailed and accepted. Witnessed informed consent was obtained. TECHNIQUE: The left hip access site was prepped with chlorhexidine and draped in sterile fashion. 2% Lidocaine was administered subcutaneously for local anesthesia. A 22-gauge spinal needle was positioned under radiographic fluoroscopic localization. Approximately 2 cc of Isovue 300 instilled for localization purposes. Medication was then injected. MEDICATIONS: 60 mg of Kenalog and 2 ml of 1% lidocaine. The spinal needle was removed, and a dressing was applied. The patient tolerated the procedure well without any immediate complications. IMPRESSION: Successful fluoroscopic guided left hip injection. Surgical Findings: Successful localization of left hip for injection. Complications Complications: No
== END | disposition home or self-care (01) ==
PROVIDERS: PCP Family Medicine; Referring Provider Family Medicine; Visit Provider Family Medicine
DX: M16.12 Unilateral primary osteoarthritis, left hip (principal)
CPT/HCPCS: 20610; 77002